=== PATIENT | female | born 1945 | race Caucasian/White ===

== ENCOUNTER → 2016-10-27 | Outpatient (CLI) | payer MEDICARE ==
--- NOTE | 2016-10-27 11:05 | BD ---
EXAMINATION TYPE: MG DEXA axial skeleton. DATE OF EXAM: 10/27/2016 COMPARISON: 03.10.2014 CLINICAL HISTORY: M[age] AGE RELATED OSTEOPOROSIS Height: 64.8 Weight: 128 FRAX RISK QUESTIONS: Alcohol (3 or more units per day): NO Family History (Parent hip fracture): YES Glucocorticoids (More than 3mos): NO (Ex: prednisone, prednisolone, methylprednisolone, dexamethasone, and hydrocortisone). History of Fracture in Adulthood: YES Secondary Osteoporosis: YES 1. Type 1 Diabetes: NO 2. Hyperthyroidism: NO 3. Menopause before 45: NO 4. Malnutrition: NO 5. Chronic liver disease: NO Rheumatoid Arthritis: NO Current Tobacco Use: YES RISK FACTORS HISTORY OF: History of Wrist Fracture: LT WRIST A CHILD Other Fractures since Age 49: RT HAND When: > 50 Family History of Osteoporosis: YES HER MOTHER AND SISTER...MOTHER WITH BROKEN HIP Smoke tobacco: YES, LESS THAN A PAC DAILY Drink Alcohol: SOCIAL Active: YES Diet low in dairy products/other sources of calcium: NO Postmenopausal woman: YES AT 54 YRS OLD Take estrogen and/or progesterone medications: AT 54 YRS OLD...AND NOT FOR VERY LONG Lost more than 2 inches in height since high school: NOT QUITE Adrenal Insufficiency: NO MEDICATIONS: Osteoporosis Medications: NONE NOW, TOOK FOSAMAX AND ACTENOL....WITH JAW SIDE EFFECTS... How Long: FOR YRS....STOPPED AT AGE 59 Additional Medications: BP MEDS, STATINS, CALCIUM WITH D3 Additional History: OSTEOARTHRITIS, HYPERTENSION EXAM MEASUREMENTS: Bone mineral densitometry was performed using the [employer] System. Bone mineral density as measured about the Lumbar spine is: ----- L1-L4(G/cm2): 1.095 T Score Values are as follows: ----- L1: -0.6 ----- L2: -0.6 ----- L3: -0.1 ----- L4: -1.4 ----- L1-L4: -0.7 Bone mineral density has: Decreased -1.1% since study of: 03.10.2014 Bone mineral density about the R hip (g/cm2): 0.706 Bone mineral density about the L hip (g/cm2): 0.720 T Score values are as follows: -----R Neck: -2.7 -----L Neck: -2.7 -----R Total: -2.4 -----L Total: -2.3 Bone mineral density has: Decreased -4.2% since study of: 03.10.2014 FRAX %'S: A 26.9% CHANCE OF A MAJOR OSTEOPOROTIC FX AND A 12.7% CHANCE OF A HIP FX.....PROBABILIT Y OF FX IN 10 YRS TIME IMPRESSION: Osteoporosis (T Score less than -2.5) as noted by T Score values at the femoral neck level in the ester ateral hips. There is increased fracture risk and therapy is usually indicated based on age.Re-Screen 1-2 years NOTE: T-SCORE=SD OF THE YOUNG ADULT MEAN.
--- NOTE | 2016-10-28 07:50 | MM ---
Reason for exam: screening (asymptomatic). Last mammogram was performed 1 year ago. History: Patient is postmenopausal, has history of bilateral breast cancer, and is nulliparous. Benign stereotactic core biopsy of the right breast, December 31, 2000. Benign core biopsy of the right breast. Physical Findings: A clinical breast exam by your physician is recommended on an annual basis and results should be correlated with mammographic findings. MG 3D Screening Mammo W/Cad Bilateral CC and MLO view(s) were taken. Prior study comparison: October 23, 2015, bilateral MG 3d screening mammo w/cad. March 10, 2014, bilateral MG screening mammo w CAD. The breast tissue is extremely dense which could obscure a lesion on mammography. Previous mammotome biopsy in the right breast. No significant changes when compared with prior studies. ASSESSMENT: Benign, BI-RAD 2 RECOMMENDATION: Routine screening mammogram of both breasts in 1 year.
== END | disposition home or self-care (01) ==
LOC: RADMAMWWP 09:25
PROVIDERS: ATTEND Obstetrics & Gynecology
DX: Z12.31 Encounter for screening mammogram for malignant neoplasm of breast (principal); M81.0 Age-related osteoporosis without current pathological fracture
CPT/HCPCS: 77080; 77063; G0202

== ENCOUNTER 2017-09-09 07:34 | Day surgery (SDC) | payer MEDICARE ==
[2017-09-07 10:33] VITALS: BMI 20.1
[~2017-09-09 07:34] MED LIST: LACTATED RINGERS 1,000 ML IV SCH; LIDOCAINE 1% 20 ML VIAL (10MG/ML) FOR IV START INTRADERMA PRN
[2017-09-09] MEDS ORDERED: LACTATED RINGERS 1,000 ML IV ONE (08:07)
[2017-09-09 08:16] VITALS: RESP 16; TEMP 97.8
[2017-09-09] MEDS ORDERED: PROPOFOL 10 MG/ML 20 ML VIAL IV ONE (08:22)
--- NOTE | 2017-09-09 08:28 | P.GSHP ---
History of Present Illness H&P Date: 09/09/17 Chief Complaint: Colon polyp Patient here today for short-term follow-up colonoscopy. Colonoscopy done in the fall showed a polyp that was removed in a piecemeal manner. Here today for the possible use of argon beam coagulation. Patient otherwise doing well. No bowel related complaints. Denies rectal bleeding. Past Medical History Past Medical History: Hyperlipidemia, Hypertension History of Any Multi-Drug Resistant Organisms: None Reported Past Surgical History: Tonsillectomy, Tubal Ligation Additional Past Surgical History / Comment(s): COLONOSCOPY. D & C Past Anesthesia/Blood Transfusion Reactions: No Reported Reaction Smoking Status: Current every day smoker - Past Family History Father Family Medical History: Cancer Medications and Allergies Home Medications Medication Instructions Recorded Confirmed Type Aspirin [Adult Low Dose Aspirin EC] 81 mg PO DAILY 09/07/17 09/07/17 History Calcium Citrate/Vitamin D3 1 each PO DAILY 09/07/17 09/09/17 History [Calcitrate + Vit D Caplet] Lisinopril-Hctz 10-12.5 mg 1 each PO DAILY 09/07/17 09/09/17 History [Zestoretic 10-12.5] Raloxifene HCl [Raloxifene HCl] 60 mg PO DAILY 09/07/17 09/09/17 History Simvastatin [Simvastatin] 40 mg PO DAILY 09/07/17 09/09/17 History Allergies Allergy/AdvReac Type Severity Reaction Status Date / Time bee venom protein (honey bee) Allergy Anaphylaxis Verified 09/07/17 10:27 amoxicillin [From Augmentin] AdvReac Abdominal Verified 09/07/17 10:27 Pain clavulanic acid AdvReac Abdominal Verified 09/07/17 10:27 [From Augmentin] Pain Surgical - Exam Vital Signs Temp Pulse Resp BP Pulse Ox 97.8 F 69 16 162/71 92 L 09/09/17 08:15 09/09/17 08:15 09/09/17 08:15 09/09/17 08:15 09/09/17 08:15 Physical exam: General: Well-developed, well-nourished HEENT: Normocephalic, sclerae nonicteric Abdomen: Nontender, nondistended Extremities: No edema Neuro: Alert and oriented Assessment and Plan (1) Colon polyp Narrative/Plan: Will proceed with colonoscopy at this time. Current Visit: Yes Status: Acute Code(s): K63.5 - POLYP OF COLON SNOMED Code(s): 77736123
--- NOTE | 2017-09-09 08:43 | P.PCN ---
Date of Procedure: 09/09/17 Procedure(s) Performed: PREOPERATIVE DIAGNOSIS: Colon polyp POSTOPERATIVE DIAGNOSIS: Normal exam PROCEDURE: Colonoscopy ANESTHESIA: MAC SURGEON: Benjamin Schrader M.D. SPECIMENS: None ENDOSCOPIC PROCEDURE: The patient was placed on the endoscopy table in the left decubitus position. The Olympus colonoscope was inserted into the anus and passed under direct visualization to the base of the cecum. The appendiceal orifice was visualized. From that point the scope was slowly withdrawn inspecting all surfaces carefully. There were no neoplastic inflammatory or polypoid lesions throughout the cecum, ascending, transverse, descending, sigmoid and rectum. There was no diverticulosis noted. Digital rectal examination was normal. The patient was taken to the recovery room in stable condition per anesthesia guidelines. RECOMMENDATIONS: Increase fiber. Follow-up colonoscopy in 3 years.
[2017-09-09 09:09] VITALS: BP 105/67; PULSE 68
== END 2017-09-09 09:30 | disposition home or self-care (01) ==
LOC: ORWHC2ENDO 07:34
PROVIDERS: ATTEND Surgery
DX: Z09 Encounter for follow-up examination after completed treatment for conditions other than malignant neoplasm (principal); K57.30 Diverticulosis of large intestine without perforation or abscess without bleeding; Z87.19 Personal history of other diseases of the digestive system; E78.5 Hyperlipidemia, unspecified; I10 Essential (primary) hypertension; F17.210 Nicotine dependence, cigarettes, uncomplicated; Z79.82 Long term (current) use of aspirin; Z79.899 Other long term (current) drug therapy; Z88.0 Allergy status to penicillin; Z91.030 Bee allergy status
CPT/HCPCS: 45378; J2704

== ENCOUNTER → 2017-11-18 | Outpatient (CLI) | payer MEDICARE ==
--- NOTE | 2017-11-19 15:43 | MM ---
Reason for exam: screening (asymptomatic). Last mammogram was performed 1 year and 1 month ago. History: Patient is postmenopausal and is nulliparous. Benign stereotactic core biopsy of the right breast, December 31, 2000. Benign core biopsy of the right breast. Physical Findings: A clinical breast exam by your physician is recommended on an annual basis and results should be correlated with mammographic findings. MG 3D Screening Mammo W/Cad Bilateral CC and MLO view(s) were taken. Prior study comparison: October 27, 2016, bilateral MG 3d screening mammo w/cad. October 23, 2015, bilateral MG 3d screening mammo w/cad. The breast tissue is extremely dense which could obscure a lesion on mammography. Finding: There are typically benign dystrophic, round calcifications in both breasts. Previous mammotome biopsy in the right breast. There is no discrete abnormality. ASSESSMENT: Benign, BI-RAD 2 RECOMMENDATION: Routine screening mammogram of both breasts in 1 year.
== END | disposition home or self-care (01) ==
LOC: RADMAMWWP 10:52
PROVIDERS: ATTEND Obstetrics & Gynecology
DX: Z12.31 Encounter for screening mammogram for malignant neoplasm of breast (principal)
CPT/HCPCS: 77063; 77067

== ENCOUNTER → 2018-01-20 | Outpatient (CLI) | payer MEDICARE ==
--- NOTE | 2018-01-20 08:25 | CT ---
EXAMINATION TYPE: CT sinus wo con DATE OF EXAM: 01/20/2018 COMPARISON: None HISTORY: Chronic sinusitis CT DLP: 570.[address] of the paranasal sinuses was performed in the axial and coronal planes. Bone and soft tissue settings are submitted. The paranasal sinuses demonstrate normal aeration and development. Moderate mucosal thickening right maxillary sinus with mild mucosal thickening at the base of the lef t maxillary sinus. Bilateral ostiomeatal units are patent. There is mild ethmoidal sinus opacificatio n. Sphenoid sinus and frontal sinuses are well-aerated. Mild nasal septal deviation from left to right. No bony destructive changes are seen within the field of view. IMPRESSION: Chronic sinusitis as noted.
== END | disposition home or self-care (01) ==
LOC: RADCTMAIN 07:59
PROVIDERS: ATTEND Otolaryngology
DX: J32.0 Chronic maxillary sinusitis (principal)
CPT/HCPCS: 70486

== ENCOUNTER → 2018-10-06 | Outpatient (CLI) | payer MEDICARE ==
--- NOTE | 2018-10-06 10:40 | CT ---
EXAMINATION TYPE: CT abdomen pelvis w con DATE OF EXAM: 10/06/2018 COMPARISON: None INDICATION: Colon polyp DLP: 596 mGycm, Automated exposure control for dose reduction was used. CONTRAST: 100 ml mL of Isovue 300. Study performed with Oral Contrast TECHNIQUE: Axial images were obtained from above the diaphragm to the pubic rami in the axial plane a t 5 mm thick sections. Reconstructed images are reviewed on the computer in the coronal plane. FINDINGS: Limited CT sections are obtained the lung bases. There is a 0.4 cm nodule within the periphery of th e right lower lobe. Series 4 image 3. Some atelectasis may be within the posterior medial right lung base. Underlying thickening is considered less likely but within the differential. Follow-up is recom mended. CT ABDOMEN:Vascular calcification is within the aorta. Inferior vena cava is unremarkable. Right kid jono appears low lying in relation to the left. The kidneys appear normal without masses cysts or hydr onephrosis. Liver and spleen and normal density without discrete masses or cysts. Pancreas: Normal Adrenal glands: The adrenal glands are normal. Gallbladder: Normal Aorta: Vascular calcification is within the aorta. Inferior vena cava: Normal. CT PELVIS: Loops of bowel within the abdomen and pelvis are normal. There are loops of bowel which are incom pletely distended or lack oral contrast limiting their evaluation. Appendix: Not clearly identified. No suspicious tubular structures or inflammatory changes are eviden t. Urinary bladder: Decompressed with limited evaluation. Genitourinary structures: A 0.9 cm cyst may be on the left ovary. Right ovary appears normal. Calcifi ed fibroids are within the uterus. Osseous structures: No suspicious lytic or sclerotic lesions. Facet degenerative changes present. IMPRESSIONS: 1. Small follicle in the left ovary. 2. Thickening along the posterior medial right lung base may be related atelectasis. Other etiologies are not excluded and follow-up is recommended. 3. Calcified uterine fibroid
== END | disposition home or self-care (01) ==
LOC: RADCTMAIN 07:06
PROVIDERS: ATTEND Surgery
DX: N85.8 Other specified noninflammatory disorders of uterus (principal)
CPT/HCPCS: 82565; 84520; 74177; 36415; Q9967

== ENCOUNTER → 2018-11-22 | Outpatient (CLI) | payer MEDICARE ==
[2018-11-22 10:39] LABS: HCT 45.6 % (34.0-46.0); HGB 14.4 gm/dL (11.4-16.0); MCH 27.9 pg (25.0-35.0); MCHC 31.5 g/dL (31.0-37.0); MCV 88.5 fL (80.0-100.0); Mean Platelet Volume 6.7; Platelet Count 264 k/uL (150-450); RBC 5.16 m/uL (3.80-5.40); RDW 13.8 % (11.5-15.5); WBC 6.7 k/uL (3.8-10.6)
[2018-11-22 10:56] LABS: Albumin 4.3 g/dL (3.5-5.0); Calcium 9.7 mg/dL (8.4-10.2); Potassium 4.9 mmol/L (3.5-5.1); Total Bilirubin 0.7 mg/dL (0.2-1.3)
== END | disposition home or self-care (01) ==
LOC: LABPAT 10:02
PROVIDERS: ATTEND Surgery
DX: Z01.812 Encounter for preprocedural laboratory examination (principal)
CPT/HCPCS: 36415; 80053; 85027

== ENCOUNTER 2018-11-29 07:21 | Inpatient (IN) | payer MEDICARE ==
[~2018-11-29 07:21] MED LIST changes: +ALVIMOPAN 12 MG CAPSULE PO ONE; +DEXAMETHASONE SOD PHOSPHATE 10 MG/ML 1 ML VIAL IV ONE; +HEPARIN SODIUM,PORCINE 5,000 UNIT/ML 1 ML VIAL SQ ONE; +HYDROmorphone 0.5 MG/0.5 ML SYRINGE IVP PRN; -LACTATED RINGERS 1,000 ML IV SCH; +ONDANSETRON 4 MG/2 ML VIAL IVP ONE; +ONDANSETRON 4 MG/2 ML VIAL IVP PRN; +metroNIDAZOLE-NS PMX 500 MG in SALINE 1 100ML.BAG IVPB ONE
[2018-11-29] MEDS: LACTATED RINGERS 1,000 ML IV SCH (08:02)
--- NOTE | 2018-11-29 08:31 | P.GSHP ---
History of Present Illness H&P Date: 11/29/18 Chief Complaint: Colon polyp 73-year-old female well-known to our service. 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 This was approximately 2.5-3 cm behind the ileocecal valve. This was not amenable to endoscopic retrieval. This had previously been identified. During her last scope one year ago with the forward viewing scope was unable to visualize this. With the side-viewing scope at [place] this polyp was well seen. Patient otherwise asymptomatic. Past Medical History Past Medical History: Asthma, Hyperlipidemia, Hypertension, Osteoarthritis (OA) Additional Past Medical History / Comment(s): CURRENT: COLON POLYP. SEVERAL BREAKS, NO SURGERIES NEEDED. History of Any Multi-Drug Resistant Organisms: None Reported Past Surgical History: Tonsillectomy, Tubal Ligation Additional Past Surgical History / Comment(s): COLONOSCOPY. SINUS SURGERY. TEETH REMOVAL. D & C Past Anesthesia/Blood Transfusion Reactions: No Reported Reaction Past Psychological History: No Psychological Hx Reported Smoking Status: Former smoker Past Alcohol Use History: Occasional Additional Past Alcohol Use History / Comment(s): QUIT SMOKING, NOVEMBER 08. 1 PPD OFF AND ON FOR PAST 40 YRS Past Drug Use History: None Reported - Past Family History Father Family Medical History: Cancer Medications and Allergies Home Medications Medication Instructions Recorded Confirmed Type Aspirin [Adult Low Dose Aspirin EC] 81 mg PO DAILY 09/07/17 11/22/18 History Calcium Citrate/Vitamin D3 1 each PO DAILY 09/07/17 11/22/18 History [Calcitrate + Vit D Caplet] Lisinopril-Hctz 10-12.5 mg 1 each PO QAM 09/07/17 11/22/18 History [Zestoretic 10-12.5] Raloxifene HCl 60 mg PO QAM 09/07/17 11/22/18 History Simvastatin 40 mg PO HS 09/07/17 11/22/18 History Fexofenadine HCl [Rosemary Allergy] 180 mg PO DAILY 11/22/18 11/22/18 History Montelukast [Singulair] 10 mg PO DAILY 11/22/18 11/22/18 History Nicotine 14Mg/24Hr Patch [Habitrol] 1 patch TOPICAL DAILY 11/22/18 11/22/18 History Allergies Allergy/AdvReac Type Severity Reaction Status Date / Time bee venom protein (honey bee) Allergy Anaphylaxis Verified 11/29/18 07:40 Surgical - Exam Vital Signs Temp Pulse Resp BP Pulse Ox 97.3 F L 63 16 157/66 98 11/29/18 07:49 11/29/18 07:49 11/29/18 07:49 11/29/18 07:49 11/29/18 07:49 Physical exam: General: Well-developed, well-nourished HEENT: Normocephalic, sclerae nonicteric Abdomen: Nontender, nondistended Extremities: No edema Neuro: Alert and oriented Assessment and Plan (1) Colon polyp Narrative/Plan: Options reviewed with the patient in detail. Options of tertiary care evaluation for possible advanced endoscopic techniques versus surgical resection reviewed. She would like to proceed with surgical resection at this time. We'll proceed with laparoscopic da Davis assisted resection cecum or right colon. Risks of bleeding, infection, leak, abscess, duodenal and ureteral injury, recurrent polyp reviewed. She understands and wishes to proceed. Current Visit: No Status: Acute Code(s): K63.5 - POLYP OF COLON SNOMED Code(s): 18945767
[2018-11-29] MEDS ORDERED: ePHEDrine SULFATE/0.9% NACL/PF 50 MG/5 ML SYRINGE IV ONE (10:03)
[2018-11-29] MEDS ORDERED: ROCURONIUM BROMIDE 10 MG/ML 10 ML VIAL IV ONE (10:03)
[2018-11-29] MEDS ORDERED: LIDOCAINE 1% INJ 10MG/ML (20 ML MDV) ONE (10:03)
[2018-11-29] MEDS ORDERED: INDOCYANINE GREEN 25 MG VIAL IV ONE (10:03)
[2018-11-29] MEDS ORDERED: PROPOFOL 10 MG/ML 20 ML VIAL IV ONE (10:03)
[2018-11-29] MEDS ORDERED: NEOSTIGMINE 1 MG/ML 10 ML VIAL ONE (10:03)
[2018-11-29] MEDS ORDERED: fentaNYL (PF) 50 MCG/ML 2 ML AMP ONE (10:03)
[2018-11-29] MEDS ORDERED: GLYCOPYRROLATE 0.2 MG/ML 2 ML VIAL ONE (10:03)
[2018-11-29] MEDS ORDERED: MIDAZOLAM 2 MG/2 ML VIAL ONE (10:03)
[2018-11-29] MEDS ORDERED: SUCCINYLCHOLINE CHLORIDE 100 MG/5 ML SYR IV ONE (10:03)
[2018-11-29] MEDS ORDERED: KETOROLAC 30 MG/ML 1 ML VIAL ONE (10:03)
[2018-11-29] MEDS ORDERED: BUPIVACAINE (PF) 0.5% 30 ML VIAL SQ ONE (10:39)
[2018-11-29] MEDS ORDERED: LACTATED RINGERS 1,000 ML IV ONE (12:17)
[2018-11-29] MEDS ORDERED: ONDANSETRON 4 MG/2 ML VIAL IVP PRN (13:23)
[2018-11-29] MEDS ORDERED: HYDROmorphone 0.5 MG/0.5 ML SYRINGE IVP PRN (13:23)
--- NOTE | 2018-11-29 13:30 | P.OP ---
Date of Procedure: 11/29/18 Procedure(s) Performed: PREOPERATIVE DIAGNOSIS: Right-sided colon polyp POSTOPERATIVE DIAGNOSIS: Same PROCEDURE: Laparoscopic da Davis assisted limited right colectomy with intracorporeal anastomosis SURGEON: Raciel EBL: Minimal see anesthesia records ANESTHESIA: General COMPLICATIONS: None OPERATIVE PROCEDURE: Patient was placed on the operating table in the supine position. The patient was placed under general anesthesia. A Kim catheter was placed. The patient's arms were tucked. The abdomen was prepped and draped in usual sterile fashion. A small Pfannenstiel incision was created in the midline. The subcutaneous fat and fascia were divided horizontally using electrocautery. The rectus muscle was divided vertically using blunt dissection and entrance into the peritoneal cavity occurred. The Matthew lap cap was placed. Through the GelPort adapter of the Matthew a 12 mm robotic port and a 12 mm assist port were placed. Full insufflation took place to 15 mmHg. 3 additional trochars were placed for the robot a 12 mm in the left subcostal a 8 mm in the left lateral infraumbilical and a 8 mm trocar in the left lower quadrant location. The patient was placed in Trendelenburg right side up. The liver was free of any evidence of distant metastasis. The polyp was not palpable laparoscopically. The terminal ileum and cecum/ascending colon were mobilized laterally by incising the white line of Toldt. Blunt dissection brought the cecum medially. The terminal ileum was divided using a laparoscopic 45 mm stapler 2 blue load. The mesentery of the ileum and cecum were divided using the vessel sealer. We stayed very close to the bowel wall as we were not clinically suspicious of malignancy. The mid ascending colon was then divided in a similar fashion and 3 separate firings of the blue load 45 mm stapler. The specimen was placed in an Endo Catch bag and brought out through the gel Port site. The specimen was opened by myself on the back table. The polypoid lesion was noted adjacent to the appendiceal orifice. The margins were clear. This did not appear clinically suspicious for malignancy. The terminal ileum was brought in an isoperistaltic manner adjacent to the hepatic flexure. 2 separate 3-0 GI silk stay sutures were placed proximally and distally. Small enterotomy and colotomy took place. At that time stapler was fired along the antimesenteric border of both the small bowel and the colon. 2 separate firings of the 45 blue load stapler were utilized. We had an adequate opening between the small bowel and colon at that point. The defect was closed transversely using a running full-thickness 20V lock suture. Once the defect was closed I used a running horizontal mattress Lambert suture along the length of the staple line in order to imbricate that area. The previously placed 3-0 GI silk sutures acted as stay sutures proximally and distally. The abdomen was irrigated. No bleeding was seen. The pneumoperitoneum was evacuated. The fascia was closed using a running 0 Vicryl suture. The 12 mm trocar site fascia was closed using a [id number] 0 Vicryl suture. The subcutaneous tissues were irrigated with saline. The subcutaneous tissues were closed using 3-0 Vicryl sutures. The skin at all locations were closed using 4-0 Monocryl sutures. Dermabond was then utilized. Sterile dressings were applied. DISPOSITION: Stable to recovery room
[2018-11-29] MEDS: Acetaminophen-Codeine 300-30mg TAB PO PRN ×2 (15:55→20:53)
[2018-11-29 16:04] VITALS: BMI 18.8
[2018-11-29] MEDS: NICOTINE 14MG/24HR PATCH TRANSDERM SCH (16:05)
[2018-11-29] MEDS: HEPARIN SODIUM,PORCINE 5,000 UNIT/ML 1 ML VIAL SQ SCH (16:07)
[2018-11-29] MEDS ORDERED: INSULIN ASPART (NovoLOG) 100 UNIT/ML VIAL SQ SCH (17:30)
[2018-11-29 17:55] LABS: Calcium 8.8 mg/dL (8.4-10.2); Potassium 3.6 mmol/L (3.5-5.1)
[2018-11-29 18:14] LABS: Basophils % (A) 0 %; Eosinophils % (A) 0 %; HCT 41.7 % (34.0-46.0); HGB 12.9 gm/dL (11.4-16.0); Lymphocytes # (A) 0.5 k/uL (1.0-4.8); Lymphocytes % (A) 3 %; MCH 27.2 pg (25.0-35.0); MCV 87.9 fL (80.0-100.0); Mean Platelet Volume 6.9; Monocytes # (A) 0.6 k/uL (0-1.0); Monocytes % (A) 4 %; Neutrophils # (A) 12.7 k/uL (1.3-7.7); Neutrophils % (A) 92 %; Platelet Count 242 k/uL (150-450); RBC 4.74 m/uL (3.80-5.40); WBC 13.9 k/uL (3.8-10.6)
[2018-11-29] MEDS ORDERED: FAMOTIDINE 20 MG/2 ML VIAL IV SCH (21:00)
[2018-11-30] MEDS: HEPARIN SODIUM,PORCINE 5,000 UNIT/ML 1 ML VIAL SQ SCH ×4 (00:12→23:26)
[2018-11-30] MEDS: Acetaminophen-Codeine 300-30mg TAB PO PRN ×6 (01:13→21:59)
[2018-11-30] MEDS: LACTATED RINGERS 1,000 ML IV SCH ×2 (05:41→20:27)
[2018-11-30] MEDS: ALVIMOPAN 12 MG CAPSULE PO SCH ×2 (07:00→20:27)
[2018-11-30] MEDS: FAMOTIDINE 20 MG TAB PO SCH (07:00)
[2018-11-30] MEDS: NICOTINE 14MG/24HR PATCH TRANSDERM SCH (07:01)
[2018-11-30] MEDS: MONTELUKAST 10 MG TAB PO SCH ×2 (07:01→07:14)
--- NOTE | 2018-11-30 12:46 | P.PN ---
<Jess Lott A - Last Filed: 11/30/18 12:38> Subjective Progress Note Date: 11/30/18 CHIEF COMPLAINT: right-sided colon polyp HISTORY OF PRESENT ILLNESS: patient is status post laparoscopic da Davis assisted limited right colectomy with intracorporeal anastomosis. Postop day 1. Patient seen and examined at the bedside. Patient's family present. Patient is tolerating full liquid diet. She denies nausea or vomiting. Kim catheter discontinued this morning. Patient voiding without difficulty. Patient reports small bowel movement this morning. Continues to pass flatus. Pain is tolerable on Tylenol #3. vital signs stable. She is afebrile. PHYSICAL EXAM: VITAL SIGNS: Reviewed. GENERAL: Well-developed in no acute distress. HEENT: No sclera icterus. Extraocular movements grossly intact. Moist buccal mucosa. Head is atraumatic, normocephalic. ABDOMEN: Soft. Nondistended. Nontender. Surgical sites clean dry intact without drainage or signs of infection. NEUROLOGIC: Alert and oriented. Cranial nerves II through XII grossly intact. ASSESSMENT: 1. Right-sided colon polyp, s/p status post laparoscopic da Davis assisted limited right colectomy with intracorporeal anastomosis PLAN: 1. Continue full liquid diet. Possible advancement once evaluated by Dr. Schrader today. 2. Pain control. Continue Tylenol 3 3. Incentive spirometry 4. Activity as tolerated 5. Await pathology 6. Possible discharge home tomorrow Nurse practitioner note has been reviewed by physician. Signing provider agrees with the documented findings, assessment, and plan of care. Objective - Vital Signs Vital signs: Vital Signs Temp 97.7 F 11/30/18 07:00 Pulse 71 11/30/18 07:00 Resp 17 11/30/18 07:00 BP 117/65 11/30/18 07:00 Pulse Ox 94 L 11/30/18 07:00 Intake & Output 11/29/18 11/30/18 11/30/18 18:59 06:59 18:59 Intake Total 1999 200 440 Output Total 510 1050 Balance 1490 -850 440 Intake: IV 2000 Oral 200 440 Output: Urine 500 1050 Estimated Blood Loss 10 Other: Voiding Method Indwelling Catheter - Labs CBC & Chem 7: 11/29/18 17:23 11/29/18 17:23 Labs: Abnormal Lab Results - Last 24 Hours (Table) 11/29/18 11/29/18 Range/Units 17:23 17:23 WBC 13.9 H (3.8-10.6) k/uL Neutrophils # 12.7 H (1.3-7.7) k/uL Lymphocytes # 0.5 L (1.0-4.8) k/uL Sodium 135 L (137-145) mmol/L BUN 24 H (7-17) mg/dL Creatinine 1.09 H (0.52-1.04) mg/dL Glucose 177 H (74-99) mg/dL <Benjamin Schrader - Last Filed: 11/30/18 14:40> Subjective As above. Patient had some bloody stools today. Otherwise doing well. Minimal pain. We'll recheck CBC as the labs that I ordered yesterday were obtained in the afternoon. Increase diet. Possible discharge tomorrow. Objective - Vital Signs Vital signs: Vital Signs Temp 98.6 F 11/30/18 14:16 Pulse 66 11/30/18 14:16 Resp 17 11/30/18 14:16 BP 147/72 11/30/18 14:16 Pulse Ox 98 11/30/18 14:16 Intake & Output 11/29/18 11/30/18 11/30/18 18:59 06:59 18:59 Intake Total 2000 200 560 Output Total 510 1050 Balance 1490 -850 560 Intake: IV 2000 Oral 200 560 Output: Urine 500 1050 Estimated Blood Loss 10 Other: Voiding Method Indwelling Catheter # Voids 1 # Bowel Movements 1 - Labs CBC & Chem 7: 11/29/18 17:23 11/29/18 17:23 Labs: Abnormal Lab Results - Last 24 Hours (Table) 11/29/18 11/29/18 Range/Units 17:23 17:23 WBC 13.9 H (3.8-10.6) k/uL Neutrophils # 12.7 H (1.3-7.7) k/uL Lymphocytes # 0.5 L (1.0-4.8) k/uL Sodium 135 L (137-145) mmol/L BUN 24 H (7-17) mg/dL Creatinine 1.09 H (0.52-1.04) mg/dL Glucose 177 H (74-99) mg/dL Assessment and Plan (1) Colon polyp Current Visit: Yes Status: Acute Code(s): K63.5 - POLYP OF COLON SNOMED Code(s): 16289948
[2018-11-30 15:46] LABS: HCT 27.4 % (34.0-46.0); MCH 28.1 pg (25.0-35.0); MCHC 32.2 g/dL (31.0-37.0); MCV 87.4 fL (80.0-100.0); Mean Platelet Volume 6.5; Platelet Count 203 k/uL (150-450); RBC 3.13 m/uL (3.80-5.40); RDW 14.2 % (11.5-15.5); WBC 13.7 k/uL (3.8-10.6)
[2018-11-30 15:53] LABS: HGB 8.8 gm/dL (11.4-16.0)
[2018-11-30] MEDS: LISINOPRIL 10 MG TAB PO SCH (16:01)
[2018-11-30 21:57] LABS: HCT 25.5 % (34.0-46.0); HGB 8.1 gm/dL (11.4-16.0); MCH 27.9 pg (25.0-35.0); MCV 87.1 fL (80.0-100.0); Mean Platelet Volume 6.9; Platelet Count 187 k/uL (150-450); RBC 2.92 m/uL (3.80-5.40); RDW 14.2 % (11.5-15.5); WBC 11.2 k/uL (3.8-10.6)
[2018-12-01] MEDS: Acetaminophen-Codeine 300-30mg TAB PO PRN ×2 (02:06→05:45)
[2018-12-01 06:08] LABS: Basophils % (A) 0 %; Eosinophils # (A) 0.1 k/uL (0-0.7); Eosinophils % (A) 1 %; HCT 24.6 % (34.0-46.0); HGB 7.6 gm/dL (11.4-16.0); Lymphocytes # (A) 1.9 k/uL (1.0-4.8); Lymphocytes % (A) 21 %; MCH 27.3 pg (25.0-35.0); MCHC 31.1 g/dL (31.0-37.0); MCV 87.9 fL (80.0-100.0); Monocytes # (A) 0.5 k/uL (0-1.0); Monocytes % (A) 6 %; Neutrophils # (A) 6.1 k/uL (1.3-7.7); Neutrophils % (A) 69 %; Platelet Count 197 k/uL (150-450); RDW 14.2 % (11.5-15.5); WBC 8.7 k/uL (3.8-10.6)
[2018-12-01 06:25] LABS: Calcium 8.4 mg/dL (8.4-10.2); Potassium 4.3 mmol/L (3.5-5.1)
[2018-12-01] MEDS: ALVIMOPAN 12 MG CAPSULE PO SCH (08:48)
[2018-12-01] MEDS: FAMOTIDINE 20 MG TAB PO SCH (08:48)
[2018-12-01] MEDS: LISINOPRIL 10 MG TAB PO SCH (08:48)
[2018-12-01] MEDS: MONTELUKAST 10 MG TAB PO SCH (08:48)
[2018-12-01] MEDS: HEPARIN SODIUM,PORCINE 5,000 UNIT/ML 1 ML VIAL SQ SCH (08:48)
[2018-12-01] MEDS: NICOTINE 14MG/24HR PATCH TRANSDERM SCH (08:48)
--- NOTE | 2018-12-01 10:55 | P.PN ---
Subjective Progress Note Date: 12/01/18 Principal diagnosis: Colon polyp Patient had additional bloody stools yesterday and her repeat hemoglobin was noted to drop this morning's level was 7.6. One unit of blood was ordered. The last time she use the restroom she saw no blood she states. Denies pain. No lightheadedness or syncopal episodes. Vital signs have been stable. Tolerating diet. Objective - Vital Signs Vital signs: Vital Signs Temp 98.5 F 12/01/18 10:44 Pulse 77 12/01/18 10:44 Resp 16 12/01/18 10:44 BP 127/57 12/01/18 10:44 Pulse Ox 96 12/01/18 07:00 Intake & Output 11/30/18 12/01/18 12/01/18 18:59 06:59 18:59 Intake Total 560 480 260 Output Total 400 Balance 560 80 260 Intake: Intake, IV Titration 480 Amount Lactated Ringers 1,000 ml 480 @ 20 mls/hr IV .Q24H [facility] Rx#:[id number] Oral 560 260 Blood Product 0 Rc As-1 Unit 0 [id number] Output: Stool 400 Other: Voiding Method Toilet # Voids 1 2 # Bowel Movements 1 1 - Exam Abdomen: Soft, nondistended, incisions clean and dry - Labs CBC & Chem 7: 12/01/18 05:47 12/01/18 05:47 Labs: Abnormal Lab Results - Last 24 Hours (Table) 11/30/18 11/30/18 11/30/18 Range/Units 15:36 15:36 21:34 WBC 13.7 H 11.2 H (3.8-10.6) k/uL RBC 3.13 L 2.92 L (3.80-5.40) m/uL Hgb 8.8 L D 8.1 L (11.4-16.0) gm/dL Hct 27.4 L 25.5 L (34.0-46.0) % BUN (7-17) mg/dL Creatinine (0.52-1.04) mg/dL Glucose (74-99) mg/dL Crossmatch See Detail 12/01/18 12/01/18 Range/Units 05:47 05:47 WBC (3.8-10.6) k/uL RBC 2.80 L (3.80-5.40) m/uL Hgb 7.6 L (11.4-16.0) gm/dL Hct 24.6 L (34.0-46.0) % BUN 23 H (7-17) mg/dL Creatinine 1.10 H (0.52-1.04) mg/dL Glucose 103 H (74-99) mg/dL Crossmatch Assessment and Plan (1) Colon polyp Narrative/Plan: Recheck hemoglobin posttransfusion. Heparin and Entereg placed on hold. Patient with suspected anastomotic bleeding. We'll monitor closely. No plans for re-intervention currently. Current Visit: Yes Status: Acute Code(s): K63.5 - POLYP OF COLON SNOMED Code(s): 35249649
[2018-12-01] MEDS: ACETAMINOPHEN TAB 325 MG TAB PO PRN ×2 (11:33→18:56)
[2018-12-01 14:53] LABS: HCT 29.3 % (34.0-46.0); MCH 29.1 pg (25.0-35.0); MCHC 32.7 g/dL (31.0-37.0); MCV 89.1 fL (80.0-100.0); Mean Platelet Volume 6.9; Platelet Count 197 k/uL (150-450); RBC 3.29 m/uL (3.80-5.40); RDW 14.2 % (11.5-15.5); WBC 10.4 k/uL (3.8-10.6)
[2018-12-01 14:54] LABS: HGB 9.6 gm/dL (11.4-16.0)
--- NOTE | 2018-12-01 15:03 | CDI ---
Documentation Clarification Form Date: 12/01/2018 2:51:12 PM From: Haley SinghKATHERINE brown, CCDS Admit Date: 11/29/2018 7:21:00 AM Patient Name: Deepa Sampson Visit Number: [id number] Discharge Date: ATTENTION: The Clinical Documentation Specialists (CDI) and [facility] Coding Staff appreciate your assistance in clarifying documentation. Please respond to the clarification below the line at the bottom and electronically sign. The CDI & [facility] Coding staff will review the response and follow-up if needed. Please note: Queries are made part of the Legal Health Record. If you have any questions, please contact the author of this message via ITS. Dr. Benjamin Schrader: Per the 11/30 progress note: patient had bloody stools. Per the 12/01 progress note: patient had bloody stools yesterday & her repeat hemoglobin was noted to drop this morning's level was 7.6*. One unit of blood ordered. 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 Also history of Asthma, Hyperlipidemia, Hypertension & OA. Clinical indicators: Presented with right side colon polyp for laparoscopic da Davis assisted limited right colectomy with intracorporeal anastomosis. Hemoglobin: (12.0), 8.8*, 8.1*, 7.6*, 9.6* Hematocrit: (41.7), 27.4*, 25.5*, 24.6*, 29.3* Treatment: 1 unit of PRBCs transfused, H/H, IV Zofran, IV Dilaudid, IV Decadron, IV Flagyl In order to capture the severity of condition, please clarify the associated diagnosis & significance of the patient's drop in hemoglobin: Diagnosis related to patient's drop in hemoglobin specified as: AND Please clarify if the patient's drop in hemoglobin is related to the surgery: Drop in hemoglobin is related to the patient's surgery o An expected postoperative condition o An unexpected postoperative condition Drop in hemoglobin is unrelated to the patient's surgery Unable to determine Other, please specify (Last Revision: February 2017) __Unexpected postoperative condition MTDD
[2018-12-01] MEDS: LACTATED RINGERS 1,000 ML IV SCH (23:04)
--- NOTE | 2018-12-01 23:39 | P.CONS ---
History of Present Illness - Reason for Consult Consult date: 11/30/18 Requesting physician: Benjamin Schrader - History of Present Illness This is a 73-year-old white female who was admitted to the hospital for resection of a large colonic polyp. She is found to have a large sessile polypoid lesion in her colon on routine colonoscopy and this cannot be removed by endoscopy so she was elected to come back to hospital for surgery. I seen her postop and she is recovering well she's currently on the soft diet. She has slight sore throat but denies any shortness of breath or chest pain or abdominal pain is very minimum. Review of Systems GENERAL: Patient denies fever. Denies chills. EYES: Denies blurred vision. Denies vision changes. Denies eye pain. EARS, NOSE, MOUTH, & THROAT: Denies headache. Denies sore throat. Denies ear pain. RESPIRATORY: Denies cough. Denies shortness of breath. Denies sputum production. Denies hemoptysis. CARDIOVASCULAR: Denies chest pain or pressure. Denies palpitations. Denies arrhythmias. GASTROINTESTINAL: Denies abdominal pain. Denies diarrhea. Denies constipation. Denies nausea. Denies vomiting. Denies heartburn. Denies blood in the stool. GENITOURINARY: Denies urinary frequency. Denies burning. Denies dysuria. Denies cloudy urine. Denies blood in the urine. MUSCULOSKELETAL: Denies myalgias. Denies joint swelling. Denies decreased range of motion beyond patients baseline. INTEGUMENTARY: Denies pruitis. Denies rash. PSYCHIATRIC: Denies suicidal or homicial ideations. ENDOCRINE: Denies weight change. Denies polydipsia. Denies polyuria. HEMATOLOGIC: Denies bleeding disorders. Past Medical History Past Medical History: Asthma, Hyperlipidemia, Hypertension, Osteoarthritis (OA) Additional Past Medical History / Comment(s): CURRENT: COLON POLYP. SEVERAL BREAKS, NO SURGERIES NEEDED. History of Any Multi-Drug Resistant Organisms: None Reported Past Surgical History: Tonsillectomy, Tubal Ligation Additional Past Surgical History / Comment(s): COLONOSCOPY. SINUS SURGERY. TEETH REMOVAL. D & C, trigger thumb surgery Past Anesthesia/Blood Transfusion Reactions: No Reported Reaction Past Psychological History: No Psychological Hx Reported Smoking Status: Former smoker Past Alcohol Use History: Occasional Additional Past Alcohol Use History / Comment(s): QUIT SMOKING, NOVEMBER 08. 1 PPD OFF AND ON FOR PAST 40 YRS Past Drug Use History: None Reported - Past Family History Father Family Medical History: Cancer Medications and Allergies Home Medications Medication Instructions Recorded Confirmed Type Aspirin [Adult Low Dose Aspirin EC] 81 mg PO DAILY 09/07/17 11/29/18 History Calcium Citrate/Vitamin D3 1 tab PO DAILY 09/07/17 11/29/18 History [Calcitrate + Vit D Caplet] Lisinopril-Hctz 10-12.5 mg 1 tab PO QAM 09/07/17 11/29/18 History [Zestoretic 10-12.5] Raloxifene HCl 60 mg PO QAM 09/07/17 11/29/18 History Simvastatin 40 mg PO HS 09/07/17 11/29/18 History Fexofenadine HCl [Rosemary Allergy] 180 mg PO DAILY 11/22/18 11/29/18 History Montelukast [Singulair] 10 mg PO DAILY 11/22/18 11/29/18 History Nicotine 14Mg/24Hr Patch [Habitrol] 1 patch TOPICAL DAILY 11/22/18 11/29/18 History Acetaminophen-Codeine 300-30mg 1 tab PO Q4H PRN 3 Days #18 tablet 11/30/18 Rx [Tylenol w/codeine #3] Allergies Allergy/AdvReac Type Severity Reaction Status Date / Time bee venom protein (honey bee) Allergy Anaphylaxis Verified 11/29/18 14:02 Physical Exam Osteopathic Statement: *. No significant issues noted on an osteopathic structural exam other than those noted in the History and Physical/Consult. Vitals: Vital Signs Temp Pulse Pulse Resp BP BP Pulse Ox 12/01/18 19:08 98.6 F 80 18 145/70 96 12/01/18 15:00 98.4 F 75 16 130/72 94 L 12/01/18 13:38 98.5 F 85 16 170/70 100 12/01/18 11:24 98.3 F 76 16 163/71 98 12/01/18 10:54 98.2 F 75 16 143/71 95 12/01/18 10:44 98.5 F 77 16 127/57 12/01/18 07:00 98.0 F 72 16 124/72 96 12/01/18 03:39 15 12/01/18 01:45 98.9 F 81 17 95/49 93 L 11/30/18 23:25 18 Intake and Output 12/01/18 12/01/18 12/01/18 06:59 14:59 22:59 Intake Total 180 890 60 Output Total 400 Balance -220 890 60 Intake: Intake, IV Titration 180 Amount Lactated Ringers 1,000 ml 180 @ 20 mls/hr IV .Q24H [facility] Rx#:[id number] Oral 580 60 Blood Product 310 Rc As-1 Unit 310 [id number] Output: Stool 400 Other: Voiding Method Toilet # Voids 2 2 1 # Bowel Movements 1 Results CBC & Chem 7: 12/01/18 14:24 12/01/18 05:47 Labs: Abnormal Lab Results - Last 24 Hours (Table) 11/30/18 12/01/18 12/01/18 Range/Units 15:36 05:47 05:47 RBC 2.80 L (3.80-5.40) m/uL Hgb 7.6 L (11.4-16.0) gm/dL Hct 24.6 L (34.0-46.0) % BUN 23 H (7-17) mg/dL Creatinine 1.10 H (0.52-1.04) mg/dL Glucose 103 H (74-99) mg/dL Crossmatch See Detail 12/01/18 Range/Units 14:24 RBC 3.29 L (3.80-5.40) m/uL Hgb 9.6 L D (11.4-16.0) gm/dL Hct 29.3 L (34.0-46.0) % BUN (7-17) mg/dL Creatinine (0.52-1.04) mg/dL Glucose (74-99) mg/dL Crossmatch Assessment and Plan (1) Postoperative anemia due to acute blood loss Current Visit: Yes Status: Acute Code(s): D62 - ACUTE POSTHEMORRHAGIC ANEMIA SNOMED Code(s): 01340097042482272 (2) COPD (chronic obstructive pulmonary disease) Current Visit: Yes Status: Acute Code(s): J44.9 - CHRONIC OBSTRUCTIVE PULMONARY DISEASE, UNSPECIFIED SNOMED Code(s): 45994619 (3) Colon polyp Current Visit: Yes Status: Acute Code(s): K63.5 - POLYP OF COLON SNOMED Code(s): 01745276 (4) Hypertension Current Visit: Yes Status: Acute Code(s): I10 - ESSENTIAL (PRIMARY) HYPERTENSION SNOMED Code(s): 17847753 (5) Hyperlipidemia Current Visit: Yes Status: Acute Code(s): E78.5 - HYPERLIPIDEMIA, UNSPECIFIED SNOMED Code(s): 68498442 Plan: Postsurgical care DVT prophylaxis pain control early ambulation increased diet continue follow-up patient's overall progress. Thank you
--- NOTE | 2018-12-01 23:43 | P.PN ---
Subjective Progress Note Date: 12/01/18 Supposes 33-year-old white female who was seen postop polyp resection where she had developed acute lower chest intestinal bleeding she had approximately 6 gross bloody stools. She is currently on a regular diet and tolerating okay and her energy hemoglobin remained stable her vital signs are stable she is afebrile Objective - Vital Signs Vital signs: Vital Signs Temp 98.6 F 12/01/18 19:08 Pulse 80 12/01/18 19:08 Resp 18 12/01/18 19:08 BP 145/70 12/01/18 19:08 Pulse Ox 96 12/01/18 19:08 Intake & Output 12/01/18 12/01/18 12/02/18 06:59 18:59 06:59 Intake Total 480 950 Output Total 400 Balance 80 950 Intake: Intake, IV Titration 480 Amount Lactated Ringers 1,000 ml 480 @ 20 mls/hr IV .Q24H [facility] Rx#:[id number] Oral 640 Blood Product 310 Rc As-1 Unit 310 [id number] Output: Stool 400 Other: Voiding Method Toilet Toilet # Voids 2 2 1 # Bowel Movements 1 - Labs CBC & Chem 7: 12/01/18 14:24 12/01/18 05:47 Labs: Abnormal Lab Results - Last 24 Hours (Table) 11/30/18 12/01/18 12/01/18 Range/Units 15:36 05:47 05:47 RBC 2.80 L (3.80-5.40) m/uL Hgb 7.6 L (11.4-16.0) gm/dL Hct 24.6 L (34.0-46.0) % BUN 23 H (7-17) mg/dL Creatinine 1.10 H (0.52-1.04) mg/dL Glucose 103 H (74-99) mg/dL Crossmatch See Detail 12/01/18 Range/Units 14:24 RBC 3.29 L (3.80-5.40) m/uL Hgb 9.6 L D (11.4-16.0) gm/dL Hct 29.3 L (34.0-46.0) % BUN (7-17) mg/dL Creatinine (0.52-1.04) mg/dL Glucose (74-99) mg/dL Crossmatch Assessment and Plan (1) COPD (chronic obstructive pulmonary disease) Current Visit: Yes Status: Acute Code(s): J44.9 - CHRONIC OBSTRUCTIVE PULMONARY DISEASE, UNSPECIFIED SNOMED Code(s): 73558915 (2) Colon polyp Current Visit: Yes Status: Acute Code(s): K63.5 - POLYP OF COLON SNOMED Code(s): 21294606 (3) Hyperlipidemia Current Visit: Yes Status: Acute Code(s): E78.5 - HYPERLIPIDEMIA, UNSPECIFIED SNOMED Code(s): 58835832 (4) Hypertension Current Visit: Yes Status: Acute Code(s): I10 - ESSENTIAL (PRIMARY) HYPERTENSION SNOMED Code(s): 46351404 (5) Postoperative anemia due to acute blood loss Current Visit: Yes Status: Acute Code(s): D62 - ACUTE POSTHEMORRHAGIC ANEMIA SNOMED Code(s): 16936653683524582 Plan: Postsurgical care DVT prophylaxis pain control early ambulation increased diet continue follow-up patient's overall progress. Thank you
[2018-12-02] MEDS: Acetaminophen-Codeine 300-30mg TAB PO PRN ×5 (01:03→23:52)
[2018-12-02] MEDS: LACTATED RINGERS 1,000 ML IV SCH (05:29)
[2018-12-02 09:00] LABS: Basophils % (A) 0 %; Eosinophils # (A) 0.2 k/uL (0-0.7); Eosinophils % (A) 2 %; HGB 9.9 gm/dL (11.4-16.0); Lymphocytes # (A) 1.6 k/uL (1.0-4.8); Lymphocytes % (A) 16 %; MCH 28.3 pg (25.0-35.0); MCHC 31.9 g/dL (31.0-37.0); MCV 88.8 fL (80.0-100.0); Mean Platelet Volume 6.5; Monocytes # (A) 0.6 k/uL (0-1.0); Monocytes % (A) 6 %; Neutrophils # (A) 7.8 k/uL (1.3-7.7); Neutrophils % (A) 76 %; Platelet Count 204 k/uL (150-450); RBC 3.49 m/uL (3.80-5.40); RDW 14.1 % (11.5-15.5); WBC 10.3 k/uL (3.8-10.6)
[2018-12-02] MEDS: NICOTINE 14MG/24HR PATCH TRANSDERM SCH (09:14)
[2018-12-02] MEDS: FAMOTIDINE 20 MG TAB PO SCH (09:14)
[2018-12-02] MEDS: MONTELUKAST 10 MG TAB PO SCH (09:14)
[2018-12-02] MEDS: LISINOPRIL 10 MG TAB PO SCH (09:14)
--- NOTE | 2018-12-02 12:19 | P.PN ---
<Jess Lott Ilene - Last Filed: 12/02/18 12:16> Subjective Progress Note Date: 12/02/18 CHIEF COMPLAINT: right-sided colon polyp HISTORY OF PRESENT ILLNESS: patient is status post laparoscopic da Davis assisted limited right colectomy with intracorporeal anastomosis performed on 11/29/2018. Patient denies bowel movements overnight. She reports a brown bowel movement this morning with some bright red blood upon wiping. Tolerating diet. Denies nausea or vomiting. Hemoglobin this morning 9.9. PHYSICAL EXAM: VITAL SIGNS: Reviewed. GENERAL: Well-developed in no acute distress. HEENT: No sclera icterus. Extraocular movements grossly intact. Moist buccal mucosa. Head is atraumatic, normocephalic. ABDOMEN: Soft. Nondistended. Nontender. Surgical sites clean dry intact without drainage or signs of infection. NEUROLOGIC: Alert and oriented. Cranial nerves II through XII grossly intact. ASSESSMENT: 1. Right-sided colon polyp, s/p status post laparoscopic da Davis assisted limited right colectomy with intracorporeal anastomosis PLAN: 1. Continue current diet 2. Pain control. Continue Tylenol 3 3. Incentive spirometry 4. Activity as tolerated 5. Possible discharge home within 24-48 hours Nurse practitioner note has been reviewed by physician. Signing provider agrees with the documented findings, assessment, and plan of care. Objective - Vital Signs Vital signs: Vital Signs Temp 98.6 F 12/02/18 07:20 Pulse 79 12/02/18 07:20 Resp 16 12/02/18 07:20 BP 134/61 12/02/18 07:20 Pulse Ox 94 L 12/02/18 07:20 Intake & Output 12/01/18 12/02/18 12/02/18 18:59 06:59 18:59 Intake Total 950 110 180 Balance 950 110 180 Intake: Intake, IV Titration 60 Amount Lactated Ringers 1,000 ml 60 @ 20 mls/hr IV .Q24H [facility] Rx#:[id number] Oral 640 50 180 Blood Product 310 Rc As-1 Unit 310 [id number] Other: Voiding Method Toilet Toilet # Voids 2 1 - Labs CBC & Chem 7: 12/02/18 08:12 12/01/18 05:47 Labs: Abnormal Lab Results - Last 24 Hours (Table) 11/30/18 12/01/18 12/02/18 Range/Units 15:36 14:24 08:12 RBC 3.29 L 3.49 L (3.80-5.40) m/uL Hgb 9.6 L D 9.9 L (11.4-16.0) gm/dL Hct 29.3 L 31.0 L (34.0-46.0) % Neutrophils # 7.8 H (1.3-7.7) k/uL Crossmatch See Detail <Benjamin Schrader - Last Filed: 12/02/18 14:12> Subjective As above. Patient's hemoglobin has stabilized. Actually higher than expected after only one unit of blood. Patient otherwise without complaints. Would like to go home tomorrow. We'll repeat CBC tomorrow anticipate discharge at that time. Objective - Vital Signs Vital signs: Vital Signs Temp 98.6 F 12/02/18 07:20 Pulse 79 12/02/18 07:20 Resp 16 12/02/18 07:20 BP 134/61 12/02/18 07:20 Pulse Ox 94 L 12/02/18 07:20 Intake & Output 12/01/18 12/02/18 12/02/18 18:59 06:59 18:59 Intake Total 950 110 180 Balance 950 110 180 Intake: Intake, IV Titration 60 Amount Lactated Ringers 1,000 ml 60 @ 20 mls/hr IV .Q24H [facility] Rx#:[id number] Oral 640 50 180 Blood Product 310 Rc As-1 Unit 310 [id number] Other: Voiding Method Toilet Toilet # Voids 2 1 - Labs CBC & Chem 7: 12/02/18 08:12 12/01/18 05:47 Labs: Abnormal Lab Results - Last 24 Hours (Table) 12/01/18 12/02/18 Range/Units 14:24 08:12 RBC 3.29 L 3.49 L (3.80-5.40) m/uL Hgb 9.6 L D 9.9 L (11.4-16.0) gm/dL Hct 29.3 L 31.0 L (34.0-46.0) % Neutrophils # 7.8 H (1.3-7.7) k/uL Assessment and Plan (1) Colon polyp Current Visit: Yes Status: Acute Code(s): K63.5 - POLYP OF COLON SNOMED Code(s): 98545420
[2018-12-02] MEDS: ACETAMINOPHEN TAB 325 MG TAB PO PRN (13:08)
--- NOTE | 2018-12-02 18:16 | P.PN ---
Subjective Progress Note Date: 12/02/18 This is a 33-year-old female status post polyp resection, tolerating low fiber diet as per surgery. Last night had one bowel movement with specks of blood with no more bleeding reported today. Hemoglobin 9.9. Denies chest pain, palpitations or shortness of breath.VSS, maintaining O2 sats in the high 90s on room air. Objective - Vital Signs Vital signs: Vital Signs Temp 98.6 F 12/02/18 14:59 Pulse 71 12/02/18 14:59 Resp 15 12/02/18 14:59 BP 135/73 12/02/18 14:59 Pulse Ox 96 12/02/18 14:59 Intake & Output 12/01/18 12/02/18 12/02/18 18:59 06:59 18:59 Intake Total 950 110 360 Balance 950 110 360 Intake: Intake, IV Titration 60 Amount Lactated Ringers 1,000 ml 60 @ 20 mls/hr IV .Q24H [facility] Rx#:[id number] Oral 640 50 360 Blood Product 310 Rc As-1 Unit 310 [id number] Other: Voiding Method Toilet Toilet # Voids 2 1 - Exam PHYSICAL EXAM: VITAL SIGNS: As above GENERAL: Sitting up in bed, no acute distress HEENT: Conjunctivae normal. eyes normal. Oral mucosa moist NECK: No JVD. No thyroid enlargement. No LNs CARDIOVASCULAR: S1, S2 regular.. No murmur RESPIRATION: Breath sounds diminished in the bases. No rhonchi or crackles. No bronchial breathing. ABDOMEN: Soft, status post surgery. Laparoscopic surgical sites clean dry and intact, well approximated .No guarding. no masses palpable. Bowel sounds heard. LEGS: No edema. no swelling PSYCHIATRY: Alert and oriented X3, mood and affect normal. NERVOUS SYSTEM: Cranial N 2-12 grossly normal. Moves all 4 limbs. Diffuse weakness No focal deficits. Strength and sensation grossly intact.. Skin: no lesions, no rash - Labs CBC & Chem 7: 12/02/18 08:12 12/01/18 05:47 Labs: Abnormal Lab Results - Last 24 Hours (Table) 12/02/18 Range/Units 08:12 RBC 3.49 L (3.80-5.40) m/uL Hgb 9.9 L (11.4-16.0) gm/dL Hct 31.0 L (34.0-46.0) % Neutrophils # 7.8 H (1.3-7.7) k/uL Assessment and Plan Assessment: ( -Right-sided colon polyp, status post laparoscopic limited right colectomy with intraocorporeal anastomosis 1) Postoperative anemia due to acute blood loss Current Visit: Yes Status: Acute Code(s): D62 - ACUTE POSTHEMORRHAGIC ANEMIA SNOMED Code(s): 94276357973857210 (2) COPD (chronic obstructive pulmonary disease) Current Visit: Yes Status: Acute Code(s): J44.9 - CHRONIC OBSTRUCTIVE PULMONARY DISEASE, UNSPECIFIED SNOMED Code(s): 75659348 (3) Colon polyp Current Visit: Yes Status: Acute Code(s): K63.5 - POLYP OF COLON SNOMED Code(s): 00535011 (4) Hypertension Current Visit: Yes Status: Acute Code(s): I10 - ESSENTIAL (PRIMARY) HYPERTENSION SNOMED Code(s): 19589231 (5) Hyperlipidemia Current Visit: Yes Status: Acute Code(s): E78.5 - HYPERLIPIDEMIA, UNSPECIFIED SNOMED Code(s): 81189521 Plan: Continue on current medication regime ,monitoring and symptomatic treatment. Diet advancement as per GI. Aggressive pulmonary toileting with incentive spirometer reinforced. Increase activity as tolerated. Discharge planning in progress for tomorrow as per surgery. Thank you Dr. Schrader for the consult. The impression and plan of care has been dictated as directed. : I performed a history and examination of this patient, discussed the same with the dictator. I agree with the dictator's note ,documented as a scribe. Any additional findings or plans will be noted.
[2018-12-02] MEDS ORDERED: ACETAMINOPHEN TAB 325 MG TAB PO PRN (19:27)
[2018-12-03] MEDS: Acetaminophen-Codeine 300-30mg TAB PO PRN ×3 (03:48→12:45)
[2018-12-03 08:09] LABS: Basophils % (A) 0 %; Eosinophils # (A) 0.2 k/uL (0-0.7); Eosinophils % (A) 3 %; HCT 28.5 % (34.0-46.0); Lymphocytes # (A) 1.5 k/uL (1.0-4.8); Lymphocytes % (A) 19 %; MCH 28.2 pg (25.0-35.0); MCHC 31.7 g/dL (31.0-37.0); MCV 88.8 fL (80.0-100.0); Mean Platelet Volume 6.7; Monocytes # (A) 0.6 k/uL (0-1.0); Monocytes % (A) 8 %; Neutrophils % (A) 67 %; Platelet Count 233 k/uL (150-450); RBC 3.21 m/uL (3.80-5.40); RDW 14.1 % (11.5-15.5); WBC 7.5 k/uL (3.8-10.6)
[2018-12-03] MEDS: LISINOPRIL 10 MG TAB PO SCH (08:38)
[2018-12-03] MEDS: FAMOTIDINE 20 MG TAB PO SCH (08:38)
[2018-12-03] MEDS: NICOTINE 14MG/24HR PATCH TRANSDERM SCH (08:39)
[2018-12-03] MEDS: MONTELUKAST 10 MG TAB PO SCH (08:39)
[2018-12-03 08:48] VITALS: BP 130/64; PULSE 77; RESP 15; TEMP 98.6
--- NOTE | 2018-12-03 12:37 | P.PN ---
<Jess Lott Ilene - Last Filed: 12/03/18 12:36> Subjective Progress Note Date: 12/03/18 CHIEF COMPLAINT: right-sided colon polyp HISTORY OF PRESENT ILLNESS: Patient is status post laparoscopic da Davis assisted limited right colectomy with intracorporeal anastomosis performed on 11/29/2018. Patient denies bowel movements overnight or this morning. She is passing gas. Tolerating diet. Denies nausea or vomiting. Hemoglobin this morning 9.0. PHYSICAL EXAM: VITAL SIGNS: Reviewed. GENERAL: Well-developed in no acute distress. HEENT: No sclera icterus. Extraocular movements grossly intact. Moist buccal mucosa. Head is atraumatic, normocephalic. ABDOMEN: Soft. Nondistended. Nontender. Surgical sites clean dry intact without drainage or signs of infection. NEUROLOGIC: Alert and oriented. Cranial nerves II through XII grossly intact. ASSESSMENT: 1. Right-sided colon polyp, s/p status post laparoscopic da Davis assisted limited right colectomy with intracorporeal anastomosis PLAN: 1. Continue current diet 2. Pain control. Continue Tylenol 3 3. Incentive spirometry 4. Activity as tolerated 5. Anticipate discharge home this afternoon Nurse practitioner note has been reviewed by physician. Signing provider agrees with the documented findings, assessment, and plan of care. Objective - Vital Signs Vital signs: Vital Signs Temp 98.6 F 12/03/18 08:00 Pulse 77 12/03/18 08:00 Resp 15 12/03/18 08:00 BP 130/64 12/03/18 08:00 Pulse Ox 96 12/03/18 08:00 Intake & Output 12/02/18 12/03/18 12/03/18 18:59 06:59 18:59 Intake Total 360 200 200 Balance 360 200 200 Intake: Intake, IV Titration 200 Amount Lactated Ringers 1,000 ml 200 @ 20 mls/hr IV .Q24H [facility] Rx#:[id number] Oral 360 200 Other: Voiding Method Toilet Toilet # Voids 2 2 - Labs CBC & Chem 7: 12/03/18 07:48 12/01/18 05:47 Labs: Abnormal Lab Results - Last 24 Hours (Table) 12/03/18 Range/Units 07:48 RBC 3.21 L (3.80-5.40) m/uL Hgb 9.0 L (11.4-16.0) gm/dL Hct 28.5 L (34.0-46.0) % <BradenshaunnaBenjamin - Last Filed: 12/03/18 16:34> Subjective As above. See discharge summary Objective - Vital Signs Vital signs: Vital Signs Temp 98.6 F 12/03/18 08:00 Pulse 77 12/03/18 08:00 Resp 15 12/03/18 08:00 BP 130/64 12/03/18 08:00 Pulse Ox 96 12/03/18 08:00 Intake & Output 12/02/18 12/03/18 12/03/18 18:59 06:59 18:59 Intake Total 360 200 450 Balance 360 200 450 Intake: Intake, IV Titration 200 Amount Lactated Ringers 1,000 ml 200 @ 20 mls/hr IV .Q24H [facility] Rx#:[id number] Oral 360 450 Other: Voiding Method Toilet Toilet # Voids 2 2 2 - Labs CBC & Chem 7: 12/03/18 07:48 12/01/18 05:47 Labs: Abnormal Lab Results - Last 24 Hours (Table) 12/03/18 Range/Units 07:48 RBC 3.21 L (3.80-5.40) m/uL Hgb 9.0 L (11.4-16.0) gm/dL Hct 28.5 L (34.0-46.0) % Assessment and Plan (1) Colon polyp Status: Acute Code(s): K63.5 - POLYP OF COLON SNOMED Code(s): 42303648
--- NOTE | 2018-12-03 14:39 | P.PN ---
Subjective Progress Note Date: 12/03/18 This is a 33-year-old female status post polyp resection, tolerating low fiber diet as per surgery. Last night had one bowel movement with specks of blood with no more bleeding reported today. Hemoglobin 9.9. Denies chest pain, palpitations or shortness of breath.VSS, maintaining O2 sats in the high 90s on room air. 12/03/2018 tolerating low fiber diet, no nausea, vomiting, no diarrhea. Passing flatus, no bowel movement. Hemoglobin 9.VSS. Denies chest pain, palpitations or shortness of breath. Denies lightheadedness, dizziness or focal deficits. Objective - Vital Signs Vital signs: Vital Signs Temp 98.6 F 12/03/18 08:00 Pulse 77 12/03/18 08:00 Resp 15 12/03/18 08:00 BP 130/64 12/03/18 08:00 Pulse Ox 96 12/03/18 08:00 Intake & Output 12/02/18 12/03/18 12/03/18 18:59 06:59 18:59 Intake Total 360 200 450 Balance 360 200 450 Intake: Intake, IV Titration 200 Amount Lactated Ringers 1,000 ml 200 @ 20 mls/hr IV .Q24H [facility] Rx#:[id number] Oral 360 450 Other: Voiding Method Toilet Toilet # Voids 2 2 2 - Exam PHYSICAL EXAM: VITAL SIGNS: As above GENERAL: Sitting up in bed, no acute distress HEENT: Conjunctivae normal. eyes normal. Oral mucosa moist NECK: No JVD. No thyroid enlargement. No LNs CARDIOVASCULAR: S1, S2 regular. No murmur RESPIRATION: Breath sounds diminished in the bases. No rhonchi or crackles. ABDOMEN: Soft, status post surgery. Laparoscopic surgical sites clean dry and intact, well approximated .No guarding. Positive Bowel sounds. LEGS: No edema. no swelling PSYCHIATRY: Alert and oriented X3, mood and affect normal. NERVOUS SYSTEM: Cranial N 2-12 grossly normal. Moves all 4 limbs. No focal deficits. - Labs CBC & Chem 7: 12/03/18 07:48 12/01/18 05:47 Labs: Abnormal Lab Results - Last 24 Hours (Table) 12/03/18 Range/Units 07:48 RBC 3.21 L (3.80-5.40) m/uL Hgb 9.0 L (11.4-16.0) gm/dL Hct 28.5 L (34.0-46.0) % Assessment and Plan Assessment: ( -Right-sided colon polyp, status post laparoscopic limited right colectomy with intraocorporeal anastomosis Current Visit: Yes Status: Acute Code(s): K63.5 - POLYP OF COLON SNOMED Code(s): 21879735 1) Postoperative anemia due to acute blood loss Current Visit: Yes Status: Acute Code(s): D62 - ACUTE POSTHEMORRHAGIC ANEMIA SNOMED Code(s): 28671721101126171 (2) COPD (chronic obstructive pulmonary disease) Current Visit: Yes Status: Acute Code(s): J44.9 - CHRONIC OBSTRUCTIVE PULMONARY DISEASE, UNSPECIFIED SNOMED Code(s): 64631619 (4) Hypertension Current Visit: Yes Status: Acute Code(s): I10 - ESSENTIAL (PRIMARY) HYPERT ENSION SNOMED Code(s): 85700028 (5) Hyperlipidemia Current Visit: Yes Status: Acute Code(s): E78.5 - HYPERLIPIDEMIA, UNSPECIFIED SNOMED Code(s): 09835817 (6) chronic renal failure stage, stage IIIa Plan: Continue on current medication regime ,monitoring and symptomatic treatment. Diet advancement as per GI. Continue with incentive spirometer at home as advised here X2 weeks. Increase activity as tolerated. Discharge planning in progress as per surgery, today. Follow-up with PCP in one week. Thank you Dr. Schrader for the consult. The impression and plan of care has been dictated as directed. : I performed a history and examination of this patient, discussed the same with the dictator. I agree with the dictator's note ,documented as a scribe. Any additional findings or plans will be noted.
--- NOTE | 2018-12-03 16:35 | P.DS ---
Providers Date of admission: 11/29/18 07:21 Attending physician: Benjamin Schrader Consults: 11/29/18 13:23 Consult Physician Routine Consulting Provider: Patrick Cowan Consult Reason/Comments: medical management Do you want consulting provider notified?: Yes Primary care physician: Patrick Cowan - Discharge Diagnosis(es) (1) Colon polyp Patient doing well today. Hemoglobin 9.0. No bowel movement since yesterday. Patient underwent admission for elective robotic colectomy earlier this week. Postop was she was noted to have a drop in hemoglobin and required 1 unit of transfusion. The patient was having bloody stools. Patient is doing well at this time. We'll discharge today. Follow-up one week. Status: Acute Plan - Discharge Summary Discharge Rx Participant: Yes New Discharge Prescriptions: New Acetaminophen-Codeine 300-30mg [Tylenol w/codeine #3] 1 tab PO Q4H PRN 3 Days #18 tablet PRN Reason: Pain No Action Simvastatin 40 mg PO HS Raloxifene HCl 60 mg PO QAM Lisinopril-Hctz 10-12.5 mg [Zestoretic 10-12.5] 1 tab PO QAM Calcium Citrate/Vitamin D3 [Calcitrate + Vit D Caplet] 1 tab PO DAILY Aspirin [Adult Low Dose Aspirin EC] 81 mg PO DAILY Montelukast [Singulair] 10 mg PO DAILY Fexofenadine HCl [Rosemary Allergy] 180 mg PO DAILY Nicotine 14Mg/24Hr Patch [Habitrol] 1 patch TOPICAL DAILY Discharge Medication List Aspirin [Adult Low Dose Aspirin EC] 81 mg PO DAILY 09/07/17 [History] Calcium Citrate/Vitamin D3 [Calcitrate + Vit D Caplet] 1 tab PO DAILY 09/07/17 [History] Lisinopril-Hctz 10-12.5 mg [Zestoretic 10-12.5] 1 tab PO QAM 09/07/17 [History] Raloxifene HCl 60 mg PO QAM 09/07/17 [History] Simvastatin 40 mg PO HS 09/07/17 [History] Fexofenadine HCl [Rosemary Allergy] 180 mg PO DAILY 11/22/18 [History] Montelukast [Singulair] 10 mg PO DAILY 11/22/18 [History] Nicotine 14Mg/24Hr Patch [Habitrol] 1 patch TOPICAL DAILY 11/22/18 [History] Acetaminophen-Codeine 300-30mg [Tylenol w/codeine #3] 1 tab PO Q4H PRN 3 Days #18 tablet 11/30/18 [Rx] Follow up Appointment(s)/Referral(s): Benjamin Schrader MD [Medical Doctor] - 12/16/18 10:15 am Patrick Cowan DO [Primary Care Provider] - 12/10/18 10:40 am [facility], [NON-STAFF] - Ambulatory/Diagnostic Orders: Complete Blood Count w/diff [LAB.AMB] Location: None Selected Patient Instructions/Handouts: Acetaminophen/Codeine (By mouth), Low Fiber Diet (DC), Colectomy (DC), Colectomy Diet (DC) Activity/Diet/Wound Care/Special Instructions: No driving while taking Tylenol #3 No lifting over 10 pounds You may shower. No soaking or tub baths Very light activity until you are reevaluated at your follow up appointment with your surgeon Discharge Disposition: HOME SELF-CARE
== END 2018-12-03 15:02 | disposition home or self-care (01) | DRG 330 ==
LOC: 2ORMAIN 07:21 → 4SSUR 13:59
PROVIDERS: ADMIT Surgery; ATTEND Surgery
PROC: 8E0W4CZ Robotic Assisted Procedure of Trunk Region, Percutaneous Endoscopic Approach (ICD-10-PCS; 2018-11-29)
PROC: 0DBK4ZZ Excision of Ascending Colon, Percutaneous Endoscopic Approach (ICD-10-PCS; principal; 2018-11-29 09:10)
PROC: 30233N1 Transfusion of Nonautologous Red Blood Cells into Peripheral Vein, Percutaneous Approach (ICD-10-PCS; 2018-12-01)
DX: D12.2 Benign neoplasm of ascending colon (principal); D62 Acute posthemorrhagic anemia; J44.9 Chronic obstructive pulmonary disease, unspecified; N18.3 Chronic kidney disease, stage 3 (moderate); E78.5 Hyperlipidemia, unspecified; I12.9 Hypertensive chronic kidney disease with stage 1 through stage 4 chronic kidney disease, or unspecified chronic kidney disease; M19.90 Unspecified osteoarthritis, unspecified site; Z79.82 Long term (current) use of aspirin; Z79.899 Other long term (current) drug therapy; Z87.891 Personal history of nicotine dependence; Z98.51 Tubal ligation status; Z91.030 Bee allergy status
CPT/HCPCS: 80048; 85025; 85027; 86850; 86900; 86901; 86920; 88309

== ENCOUNTER → 2018-12-14 | Outpatient (CLI) | payer MEDICARE ==
--- NOTE | 2018-12-14 11:57 | BD ---
EXAMINATION TYPE: Axial Bone Density DATE OF EXAM: 12/14/2018 COMPARISON: 2017 CLINICAL HISTORY: post menopausal, N95.1 Height: 5'5 1/2 Weight: 117 FRAX RISK QUESTIONS: Family History (Parent hip fracture): y History of Fracture in Adulthood: y Secondary Osteoporosis: RISK FACTORS HISTORY OF: History of Wrist Fracture: left When: child Family History of Osteoporosis: y Postmenopausal woman: y MEDICATIONS: -----Osteoporosis Medications: -----Which medication: Evista -----when : 10 years Additional Medications: blood pressure, cholesterol, Evista Additional History: EXAM MEASUREMENTS: Bone mineral densitometry was performed using the [employer] System. Bone mineral density as measured about the Lumbar spine is: ----- L1-L4(G/cm2): 1.116 T Score Values are as follows: ----- L2: -0.4 ----- L3: 0.3 ----- L4: -1.0 ----- L1-L4: -0.5 Bone mineral density has: Increased 4.0% since study of: 10/27/2016 Bone mineral density about the R hip (g/cm2): 0.618 Bone mineral density about the L hip (g/cm2): 0.653 T Score values are as follows: -----R Neck: -3.0 -----L Neck: -2.8 -----R Total: -2.8 -----L Total: -2.9 Bone mineral density has: Decreased -8.4% since study of: 10/27/2016 IMPRESSION: Osteoporosis (T Score less than -2.5). There is increased fracture risk and therapy is usually indicated based on age. Re-Screen 1-2 years. NOTE: T-SCORE=SD OF THE YOUNG ADULT MEAN.
--- NOTE | 2018-12-15 09:26 | MM ---
Reason for exam: screening (asymptomatic). Last mammogram was performed 1 year and 1 month ago. History: Patient is postmenopausal and is nulliparous. Benign stereotactic core biopsy of the right breast, December 31, 2000. Benign core biopsy of the right breast. Physical Findings: A clinical breast exam by your physician is recommended on an annual basis and results should be correlated with mammographic findings. MG 3D Screening Mammo W/Cad Bilateral CC and MLO view(s) were taken. Prior study comparison: November 18, 2017, bilateral MG 3d screening mammo w/cad. October 27, 2016, bilateral MG 3d screening mammo w/cad. The breast tissue is extremely dense which could obscure a lesion on mammography. Benign appearing bilateral calcifications. No suspicious abnormality. Right biopsy marker noted. No significant changes when compared with prior studies. ASSESSMENT: Benign, BI-RAD 2 RECOMMENDATION: Routine screening mammogram of both breasts in 1 year.
== END | disposition home or self-care (01) ==
LOC: RADMAMWWP 08:04
PROVIDERS: ATTEND Obstetrics & Gynecology
DX: Z12.31 Encounter for screening mammogram for malignant neoplasm of breast (principal); M81.0 Age-related osteoporosis without current pathological fracture
CPT/HCPCS: 77063; 77067; 77080

== ENCOUNTER → 2019-02-22 | Outpatient (CLI) | payer MEDICARE ==
--- NOTE | 2019-02-22 16:09 | XR ---
EXAM TYPE: LUMBAR SPINE X RAY SERIES COMPARISON: NONE HISTORY: Pain TECHNIQUE: 3 views views are submitted. FINDINGS: Alignment is anatomic. The pedicles are intact. The transverse processes are intact. There is subt le curvature the spine with diffuse osteopenia. Calcifications in the left upper quadrant are noted a re nonspecific. Vascular calcifications are seen. There is multilevel degenerative disc disease most marked findings at L2-3 and L3-L4. IMPRESSION: 1. Degenerative disc disease most pronounced at L2-L3. Recommend follow-up MRI. 2. Calcification left upper quadrant could be related to a small renal stone correlate clinically.
== END | disposition home or self-care (01) ==
LOC: RADXRMAIN 15:43
PROVIDERS: ATTEND Family Medicine
DX: M51.36 Other intervertebral disc degeneration, lumbar region (principal)
CPT/HCPCS: 72100

== ENCOUNTER → 2019-12-13 | Day surgery (SDC) | payer MEDICARE ==
[2019-12-08 11:07] VITALS: BMI 21.7
[~2019-12-13] MED LIST changes: -ALVIMOPAN 12 MG CAPSULE PO ONE; -DEXAMETHASONE SOD PHOSPHATE 10 MG/ML 1 ML VIAL IV ONE; -HEPARIN SODIUM,PORCINE 5,000 UNIT/ML 1 ML VIAL SQ ONE; -HYDROmorphone 0.5 MG/0.5 ML SYRINGE IVP PRN; +LACTATED RINGERS 1,000 ML IV SCH; +LIDOCAINE 1% (10MG/ML) FOR IV START INTRADERMA ONE; -LIDOCAINE 1% 20 ML VIAL (10MG/ML) FOR IV START INTRADERMA PRN; +LIDOCAINE 1% INJ 10MG/ML (20 ML MDV) ONE; -ONDANSETRON 4 MG/2 ML VIAL IVP ONE; -ONDANSETRON 4 MG/2 ML VIAL IVP PRN; +PROPOFOL 10 MG/ML 20 ML VIAL IV ONE; -metroNIDAZOLE-NS PMX 500 MG in SALINE 1 100ML.BAG IVPB ONE
[2019-12-13 10:49] VITALS: RESP 16; TEMP 97.8
--- NOTE | 2019-12-13 11:41 | P.GSHP ---
History of Present Illness H&P Date: 12/13/19 Chief Complaint: Colon cancer screening Patient here today for colonoscopy. Last colonoscopy 1 year ago. Patient had a polyp requiring surgical resection 1 year ago. No bowel complaints currently. Past Medical History Past Medical History: Hyperlipidemia, Hypertension Additional Past Medical History / Comment(s): hx COLON POLYP. hx of migraine, History of Any Multi-Drug Resistant Organisms: None Reported Past Surgical History: Appendectomy, Bowel Resection, Tonsillectomy, Tubal Ligation Additional Past Surgical History / Comment(s): COLONOSCOPY. SINUS SURGERY. D & C, rt trigger thumb surgery Past Anesthesia/Blood Transfusion Reactions: No Reported Reaction Smoking Status: Former smoker - Past Family History Father Family Medical History: Cancer Medications and Allergies Home Medications Medication Instructions Recorded Confirmed Type Aspirin [Adult Low Dose Aspirin EC] 81 mg PO DAILY 09/07/17 12/08/19 History Calcium Citrate/Vitamin D3 1 tab PO DAILY 09/07/17 12/08/19 History [Calcitrate + Vit D Caplet] Lisinopril-Hctz 10-12.5 mg 1 tab PO QAM 09/07/17 12/08/19 History [Zestoretic 10-12.5] Raloxifene HCl 60 mg PO QAM 09/07/17 12/08/19 History Simvastatin 40 mg PO HS 09/07/17 12/08/19 History Montelukast [Singulair] 10 mg PO DAILY 11/22/18 12/08/19 History EPINEPHrine (Auto Inject) [Epipen] 0.3 mg IM ONCE PRN 12/08/19 12/08/19 History Multivitamins, Thera [Multivitamin 1 tab PO DAILY 12/08/19 12/08/19 History (formulary)] Allergies Allergy/AdvReac Type Severity Reaction Status Date / Time bee venom protein (honey bee) Allergy Anaphylaxis Verified 12/13/19 10:46 Surgical - Exam Vital Signs Temp Pulse Resp BP Pulse Ox 97.8 F 79 16 143/67 95 12/13/19 10:48 12/13/19 10:48 12/13/19 10:48 12/13/19 10:48 12/13/19 10:48 Physical exam: General: Well-developed, well-nourished HEENT: Normocephalic, sclerae nonicteric Abdomen: Nontender, nondistended Extremities: No edema Neuro: Alert and oriented Assessment and Plan (1) Colon cancer screening Narrative/Plan: Will proceed with colonoscopy at this time Current Visit: Yes Status: Acute Code(s): Z12.11 - ENCOUNTER FOR SCREENING FOR MALIGNANT NEOPLASM OF COLON SNOMED Code(s): 961225001
--- NOTE | 2019-12-13 11:42 | P.PCN ---
Date of Procedure: 12/13/19 Procedure(s) Performed: PREOPERATIVE DIAGNOSIS: Colon cancer screening, personal history of colon polyps POSTOPERATIVE DIAGNOSIS: Mild diverticulosis PROCEDURE: Colonoscopy ANESTHESIA: MAC SURGEON: Benjamin Schrader M.D. SPECIMENS: None ENDOSCOPIC PROCEDURE: The patient was placed on the endoscopy table in the left decubitus position. The Olympus colonoscope was inserted into the anus and passed under direct visualization to the ileocolonic anastomosis. The anastomosis was widely patent. The transverse descending sigmoid and rectum appeared normal. There was mild left-sided diverticulosis present. Digital rectal examination was normal. The patient was taken to the recovery room in stable condition per anesthesia guidelines. RECOMMENDATIONS: Resume diet. Follow colonoscopy 3 years.
[2019-12-13 12:06] VITALS: BP 100/68; PULSE 68
== END ==
LOC: ORWHC2ENDO 09:55
PROVIDERS: ATTEND Surgery
DX: Z12.11 Encounter for screening for malignant neoplasm of colon (principal); K57.30 Diverticulosis of large intestine without perforation or abscess without bleeding; Z86.010 Personal history of colon polyps; I10 Essential (primary) hypertension; E78.5 Hyperlipidemia, unspecified; G43.909 Migraine, unspecified, not intractable, without status migrainosus; Z79.82 Long term (current) use of aspirin; Z91.030 Bee allergy status; Z79.899 Other long term (current) drug therapy; Z90.49 Acquired absence of other specified parts of digestive tract; Z98.51 Tubal ligation status; Z90.89 Acquired absence of other organs; Z87.891 Personal history of nicotine dependence; Z80.9 Family history of malignant neoplasm, unspecified
CPT/HCPCS: J2001; J2704; G0105

== ENCOUNTER → 2019-12-16 | Outpatient (CLI) | payer MEDICARE ==
--- NOTE | 2019-12-20 08:28 | MM ---
Reason for exam: screening (asymptomatic). Last mammogram was performed 1 year ago. History: Patient is postmenopausal and is nulliparous. Benign stereotactic core biopsy of the right breast, December 31, 2000. Benign core biopsy of the right breast. Took hormonal contraceptives for 7 years. Physical Findings: A clinical breast exam by your physician is recommended on an annual basis and results should be correlated with mammographic findings. MG 3D Screening Mammo W/Cad Bilateral CC and MLO view(s) were taken. Prior study comparison: December 14, 2018, bilateral MG 3d screening mammo w/cad. November 18, 2017, bilateral MG 3d screening mammo w/cad. The breast tissue is heterogeneously dense. This may lower the sensitivity of mammography. Benign appearing bilateral calcifications. No significant changes when compared with prior studies. ASSESSMENT: Benign, BI-RAD 2 RECOMMENDATION: Routine screening mammogram of both breasts in 1 year.
== END | disposition home or self-care (01) ==
LOC: RADMAMWWP 07:51
PROVIDERS: ATTEND Obstetrics & Gynecology
DX: Z12.31 Encounter for screening mammogram for malignant neoplasm of breast (principal)
CPT/HCPCS: 77063; 77067

== ENCOUNTER → 2020-12-24 | Outpatient (CLI) | payer MEDICARE ==
--- NOTE | 2020-12-24 16:39 | BD ---
EXAMINATION TYPE: Axial Bone Density DATE OF EXAM: 12/24/2020 COMPARISON: 12/14/2018 CLINICAL HISTORY: 73-year-old female postmenopausal screening Height: 66 Weight: 139.7 FRAX RISK QUESTIONS: Alcohol (3 or more units per day): no Family History (Parent hip fracture): yes Glucocorticoids (More than 3mos): no (Ex: prednisone, prednisolone, methylprednisolone, dexamethasone, and hydrocortisone). History of Fracture in Adulthood: yes Secondary Osteoporosis: 1. Type 1 Diabetes: no 2. Hyperthyroidism: no 3. Menopause before 45: no 4. Malnutrition: no 5. Chronic liver disease: no Rheumatoid Arthritis: no Current Tobacco Use: no RISK FACTORS HISTORY OF: History of Wrist Fracture: left wrist as a child Surgery to Spine/Hip(right/left)/Wrist (right/left): no Family History of Osteoporosis: yes Active: yes Diet low in dairy products/other sources of calcium: no Postmenopausal woman: age 54 MEDICATIONS: cholesterol, blood pressure meds Osteoporosis Medications: evista How Lon years Additional Medications: Additional History: EXAM MEASUREMENTS: Bone mineral densitometry was performed using the [employer] System. Bone mineral density as measured about the Lumbar spine is: ----- L1-L4(G/cm2): 1.115 T Score Values are as follows: ----- L2: -0.4 ----- L3: 0.4 ----- L4: -1.8 ----- L1-L4: -0.5 Bone mineral density has: decreased -2.8 % since study of: 12.14.2018 Bone mineral density about the R hip (g/cm2): 0.645 Bone mineral density about the L hip (g/cm2): .0647 T Score values are as follows: -----R Neck: -2.8 -----L Neck: -2.8 -----R Total: -2.6 -----L Total: -2.6 Bone mineral density has: increased 4.1 % since study of: 12.14.2018 IMPRESSION: Osteoporosis (T Score less than -2.5). There is increased fracture risk and therapy is usually indicated based on age. Re-Screen 1-2 years. NOTE: T-SCORE=SD OF THE YOUNG ADULT MEAN.
--- NOTE | 2020-12-25 12:08 | MM ---
Reason for exam: screening (asymptomatic). Last mammogram was performed 1 year ago. History: Patient is postmenopausal and is nulliparous. Benign stereotactic core biopsy of the right breast, December 31, 2000. Benign core biopsy of the right breast. Took hormonal contraceptives for 7 years. Physical Findings: A clinical breast exam by your physician is recommended on an annual basis and results should be correlated with mammographic findings. MG 3D Screening Mammo W/Cad Bilateral CC and MLO view(s) were taken. Prior study comparison: December 16, 2019, bilateral MG 3d screening mammo w/cad. December 14, 2018, bilateral MG 3d screening mammo w/cad. The breast tissue is extremely dense which could obscure a lesion on mammography. There are benign appearing round dystrophic calcifications bilaterally. Previous mammotome biopsy in the right breast. There is no discrete abnormality. ASSESSMENT: Benign, BI-RAD 2 RECOMMENDATION: Routine screening mammogram of both breasts in 1 year.
== END | disposition home or self-care (01) ==
LOC: RADMAMWWP 07:01
PROVIDERS: ATTEND Obstetrics & Gynecology
DX: Z12.31 Encounter for screening mammogram for malignant neoplasm of breast (principal)
CPT/HCPCS: 77063; 77067; 77080

== ENCOUNTER → 2021-10-31 | Outpatient (CLI) | payer MEDICARE ==
--- NOTE | 2021-11-01 07:13 | US ---
EXAMINATION TYPE: US kidneys/renal and bladder DATE OF EXAM: 10/31/2021 COMPARISON: NONE CLINICAL HISTORY: N18.30 CHRONIC KIDNEY DISEASE, STAGE 3 UNSPECIFIED. CKD EXAM MEASUREMENTS: Right Kidney: 11.7 x 4.8 x 4.7 cm Left Kidney: 7.8 x 4.3 x 3.6 cm Right Kidney: no evidence of hydronephrosis Left Kidney: atrophic, echogenic, thin renal cortex Bladder: appears wnl Bilateral Jets seen: yes There is no evidence for hydronephrosis at this point in time. No nephrolithiasis is seen. No haleigh s are identified. The urinary bladder is anechoic. Bilateral ureteral jets are seen. IMPRESSION: Atrophic left kidney.
== END | disposition home or self-care (01) ==
LOC: RADUSWWP 16:19
PROVIDERS: ATTEND Internal Medicine Nephrology
DX: N18.30 Chronic kidney disease, stage 3 unspecified (principal); N26.1 Atrophy of kidney (terminal)
CPT/HCPCS: 76770

== ENCOUNTER → 2021-11-19 | Outpatient (CLI) | payer MEDICARE ==
[2021-11-19 22:29] LABS: Basophils # (A) 0.07 X 10*3/uL (0.00-0.10); Basophils % (A) 0.9 %; Eosinophils # (A) 0.08 X 10*3/uL (0.04-0.35); HCT 44.2 % (37.2-46.3); HGB 13.6 g/dL (12.0-15.0); Immature Grans, Automated 0.3 %; Lymphocytes # (A) 1.62 X 10*3/uL (0.90-5.00); Lymphocytes % (A) 20.3 %; MCH 26.6 pg (27.0-32.0); MCHC 30.8 g/dL (32.0-37.0); MCV 86.5 fL (80.0-97.0); Mean Platelet Volume 10.1 fL (9.5-12.2); Monocytes # (A) 0.73 X 10*3/uL (0.20-1.00); Monocytes % (A) 9.1 %; NRBC Per 100 WBC 0 /100 WBCS (0.0-0.0); Neutrophils # (A) 5.47 X 10*3/uL (1.80-7.70); Neutrophils % (A) 68.4 %; Platelet Count 305 X 10*3/uL (140-440); RBC 5.11 X 10*6/uL (4.10-5.20); RDW 14.6 % (11.5-14.5); WBC 7.99 X 10*3/uL (4.50-10.00)
[2021-11-19 22:55] LABS: Appearance,Urine Clear (Clear); Bilirubin,Urine Negative (Negative); Blood,Urine Negative (Negative); Color,Urine Yellow (Yellow); Ketones,Urine Negative (Negative); Nitrite,Urine Negative (Negative); PH, Urine 6.5 (5.0-8.0); Specific Gravity,Urine 1.004 (1.001-1.030); Urobilinogen,Urine 0.2 (0.2,1.0)
[2021-11-19 23:12] LABS: % Iron Saturation 28.01 (12.00-45.00); African American GFR (CKD) 56.1 (60.0-200.0); Anion Gap 12.6 mmol/L (10.00-18.00); BUN/Creat Ratio 13.18 Ratio (12.00-20.00); Blood Urea Nitrogen 14.5 mg/dL (9.0-27.0); Calcium 9.7 mg/dL (8.7-10.3); Carbon Dioxide 24.4 mmol/L (20.0-27.5); Non-African American GFR(CKD) 48.4 (60.0-200.0); Phosphorus 3.9 mg/dL (2.4-5.1); Potassium 4.6 mmol/L (3.5-5.5); Uric Acid 4.7 mg/dL (2.9-7.7)
[2021-11-19 23:28] LABS: Albumin 4.5 g/dL (3.8-4.9); Ferritin 64.3 ng/mL (10.0-291.0)
[2021-11-20 06:19] LABS: Microalbumin Creatinine Ratio <30 mg/g Creat (0-30); Urine Creatinine 16.3 mg/dL (28.0-217.0)
== END | disposition home or self-care (01) ==
LOC: LABWHC1 14:41
PROVIDERS: ATTEND Internal Medicine Nephrology
DX: N18.30 Chronic kidney disease, stage 3 unspecified (principal); E55.9 Vitamin D deficiency, unspecified; N25.81 Secondary hyperparathyroidism of renal origin; M10.9 Gout, unspecified; N39.0 Urinary tract infection, site not specified; D64.9 Anemia, unspecified; R80.9 Proteinuria, unspecified
CPT/HCPCS: 36415; 80048; 81003; 82040; 82043; 82306; 82570; 82728; 83540; 83550; 83735; 83970; 84100; 84550; 85025

== ENCOUNTER → 2021-12-25 | Outpatient (CLI) | payer MEDICARE ==
--- NOTE | 2021-12-26 07:48 | MM ---
Reason for Exam: Screening (asymptomatic). Last screening mammogram was performed 12 month(s) ago. Patient History: Menarche at age 11. Patient has no children. Postmenopausal. Patient used Hormonal Contraceptives for 7 years. Benign Core Biopsy on the right side. 12/31/2000, Benign Stereotactic Core Biopsy on the right side. Risk Values: Lucille 5 year model risk: 2.9%. NCI Lifetime model risk: 5.5%. Prior Study Comparison: 12/14/2018 Bilateral Screening Mammogram, [facility]. 12/16/2019 Bilateral Screening Mammogram, [facility]. 12/24/2020 Bilateral Screening Mammogram, [facility]. Tissue Density: The breast tissue is heterogeneously dense. This may lower the sensitivity of mammography. Findings: Analyzed By CAD. There is no suspicious group of microcalcifications or new suspicious mass in either breast. Stable benign-appearing calcifications noted bilaterally. Overall Assessment: Benign, BI-RAD 2 Management: Screening Mammogram of both breasts in 1 year. A clinical breast exam by your physician is recommended on an annual basis and results should be correlated with mammographic findings. Electronically signed and approved by: Kali Wilson M.D. Radiologis
== END | disposition home or self-care (01) ==
LOC: RADMAMWWP 07:47
PROVIDERS: ATTEND Obstetrics & Gynecology
DX: Z12.31 Encounter for screening mammogram for malignant neoplasm of breast (principal)
CPT/HCPCS: 77063; 77067

== ENCOUNTER → 2022-02-18 | Outpatient (CLI) | payer MEDICARE ==
[2022-02-18 14:35] LABS: African American GFR (CKD) 50.5 (60.0-200.0); Anion Gap 9.7 mmol/L (10.00-18.00); BUN/Creat Ratio 19.5 Ratio (12.00-20.00); Blood Urea Nitrogen 23.4 mg/dL (9.0-27.0); Calcium 9.3 mg/dL (8.7-10.3); Carbon Dioxide 25.3 mmol/L (20.0-27.5); Non-African American GFR(CKD) 43.6 (60.0-200.0); Potassium 4.5 mmol/L (3.5-5.5)
== END | disposition home or self-care (01) ==
LOC: LABWHC1 09:35
PROVIDERS: ATTEND Nurse Practitioner Family
DX: N18.31 Chronic kidney disease, stage 3a (principal)
CPT/HCPCS: 36415; 80048

== ENCOUNTER → 2022-03-18 | Outpatient (CLI) | payer MEDICARE ==
[2022-03-18 14:30] LABS: Chol/HDL Ratio 2.69 Ratio; LDL Cholesterol,Calculated 81.2 mg/dL (0.0-131.0)
[2022-03-18 14:35] LABS: Basophils # (A) 0.06 X 10*3/uL (0.00-0.10); Basophils % (A) 0.7 %; Eosinophils # (A) 0.08 X 10*3/uL (0.04-0.35); HCT 40.7 % (37.2-46.3); Immature Grans, Automated 0.9 %; Lymphocytes # (A) 1.61 X 10*3/uL (0.90-5.00); Lymphocytes % (A) 19.7 %; MCH 26.5 pg (27.0-32.0); MCHC 31.9 g/dL (32.0-37.0); MCV 83.1 fL (80.0-97.0); Mean Platelet Volume 9.2 fL (9.5-12.2); Monocytes # (A) 0.73 X 10*3/uL (0.20-1.00); Monocytes % (A) 8.9 %; NRBC Per 100 WBC 0 /100 WBCS (0.0-0.0); Neutrophils # (A) 5.64 X 10*3/uL (1.80-7.70); Neutrophils % (A) 68.8 %; Platelet Count 324 X 10*3/uL (140-440); RDW 14.3 % (11.5-14.5); WBC 8.19 X 10*3/uL (4.50-10.00)
[2022-03-18 15:34] LABS: % Iron Saturation 30.65 (12.00-45.00); African American GFR (CKD) 48.5 (60.0-200.0); BUN/Creat Ratio 20.32 Ratio (12.00-20.00); Blood Urea Nitrogen 25.2 mg/dL (9.0-27.0); Calcium 9.1 mg/dL (8.7-10.3); Carbon Dioxide 23.5 mmol/L (20.0-27.5); Non-African American GFR(CKD) 41.9 (60.0-200.0); Phosphorus 3.2 mg/dL (2.4-5.1); Uric Acid 5.6 mg/dL (2.9-7.7)
[2022-03-18 15:46] LABS: Albumin 4.3 g/dL (3.8-4.9); Ferritin 88.1 ng/mL (10.0-291.0)
[2022-03-18 15:56] LABS: Appearance,Urine Clear (Clear); Bilirubin,Urine Negative (Negative); Blood,Urine Negative (Negative); Color,Urine Yellow (Yellow); Ketones,Urine Negative (Negative); Nitrite,Urine Negative (Negative); Specific Gravity,Urine 1.008 (1.001-1.030); Urobilinogen,Urine 0.2 (0.2,1.0)
[2022-03-18 16:05] LABS: Bacteria,Urine None Seen /HPF (None Seen)
[2022-03-18 18:58] LABS: Microalbumin Creatinine Ratio <30 mg/g Creat (0-30)
== END | disposition home or self-care (01) ==
LOC: LABWHC1 10:24
PROVIDERS: ATTEND Nurse Practitioner Family
DX: Z00.00 Encounter for general adult medical examination without abnormal findings (principal); I12.9 Hypertensive chronic kidney disease with stage 1 through stage 4 chronic kidney disease, or unspecified chronic kidney disease; N18.31 Chronic kidney disease, stage 3a; E55.9 Vitamin D deficiency, unspecified; N25.81 Secondary hyperparathyroidism of renal origin; M10.9 Gout, unspecified; N39.0 Urinary tract infection, site not specified; D64.9 Anemia, unspecified
CPT/HCPCS: 36415; 80048; 80061; 81001; 82040; 82043; 82306; 82570; 82728; 83036; 83540; 83550; 83735; 83970; 84100; 84550; 85025

== ENCOUNTER → 2022-08-21 | Outpatient (CLI) | payer MEDICARE ==
[2022-08-21 15:25] LABS: Appearance,Urine Clear (Clear); Bilirubin,Urine Negative (Negative); Blood,Urine Negative (Negative); Color,Urine Yellow (Yellow); Ketones,Urine Negative (Negative); Nitrite,Urine Negative (Negative); PH, Urine 5.5 (5.0-8.0); Specific Gravity,Urine 1.009 (1.001-1.030); Urobilinogen,Urine 0.2 (0.2,1.0)
[2022-08-21 15:38] LABS: Basophils # (A) 0.07 X 10*3/uL (0.00-0.10); Basophils % (A) 0.8 %; Eosinophils # (A) 0.24 X 10*3/uL (0.04-0.35); Eosinophils % (A) 2.9 %; HCT 43.1 % (37.2-46.3); HGB 13.3 g/dL (12.0-15.0); Immature Grans, Automated 0.6 %; Lymphocytes # (A) 2.57 X 10*3/uL (0.90-5.00); Lymphocytes % (A) 31.2 %; MCH 26.4 pg (27.0-32.0); MCHC 30.9 g/dL (32.0-37.0); MCV 85.7 fL (80.0-97.0); Mean Platelet Volume 9.6 fL (9.5-12.2); Monocytes # (A) 0.95 X 10*3/uL (0.20-1.00); Monocytes % (A) 11.5 %; NRBC Per 100 WBC 0 /100 WBCS (0.0-0.0); Neutrophils # (A) 4.36 X 10*3/uL (1.80-7.70); Platelet Count 298 X 10*3/uL (140-440); RBC 5.03 X 10*6/uL (4.10-5.20); RDW 14.5 % (11.5-14.5); WBC 8.24 X 10*3/uL (4.50-10.00)
[2022-08-21 15:59] LABS: Bacteria,Urine None Seen /HPF (None Seen)
[2022-08-21 16:05] LABS: Albumin 4.4 g/dL (3.8-4.9); Ferritin 62.9 ng/mL (10.0-291.0)
[2022-08-21 16:09] LABS: % Iron Saturation 33.02 (12.00-45.00); African American GFR (CKD) 45.5 (60.0-200.0); Anion Gap 11.7 mmol/L (10.00-18.00); BUN/Creat Ratio 17.54 Ratio (12.00-20.00); Blood Urea Nitrogen 22.8 mg/dL (9.0-27.0); Calcium 9.9 mg/dL (8.7-10.3); Carbon Dioxide 24.3 mmol/L (20.0-27.5); Magnesium 1.9 mg/dL (1.5-2.4); Non-African American GFR(CKD) 39.3 (60.0-200.0); Potassium 5.1 mmol/L (3.5-5.5); Uric Acid 5.7 mg/dL (2.9-7.7)
[2022-08-21 19:28] LABS: Microalbumin Creatinine Ratio <30 mg/g Creat (0-30); Urine Creatinine 51.6 mg/dL (28.0-217.0)
== END | disposition home or self-care (01) ==
LOC: LABWHC1 08:48
PROVIDERS: ATTEND Nurse Practitioner Family
DX: E55.9 Vitamin D deficiency, unspecified (principal); N25.81 Secondary hyperparathyroidism of renal origin; M10.9 Gout, unspecified; N39.0 Urinary tract infection, site not specified; N18.31 Chronic kidney disease, stage 3a; D63.1 Anemia in chronic kidney disease
CPT/HCPCS: 36415; 80048; 81001; 82040; 82043; 82306; 82570; 82728; 83540; 83550; 83735; 83970; 84100; 84550; 85025

== ENCOUNTER → 2022-12-26 | Outpatient (CLI) | payer MEDICARE ==
--- NOTE | 2022-12-26 15:15 | BD ---
EXAMINATION TYPE: Axial Bone Density DATE OF EXAM: 12/26/2022 CLINICAL HISTORY: 77 years old Female. ICD-10 CODE: Z78.0 ASYMPTOMATIC MENOPAUSAL STATE Height: 65.25in Weight: 137lb FRAX RISK QUESTIONS: Family History (Parent hip fracture): yes History of Fracture in Adulthood: yes Secondary Osteoporosis: RISK FACTORS HISTORY OF: Family History of Osteoporosis: yes Active: yes Postmenopausal woman: yes Adrenal Insufficiency: stage 3b kidney failure MEDICATIONS: Osteoporosis Medications: Which medication: Fosamax in the past Evista current How Lon years Additional Medications: cholesterol med, bp med, calcium with vitamin d Additional History: EXAM MEASUREMENTS: Bone mineral densitometry was performed using the [employer] System. Bone mineral density as measured about the Lumbar spine is: ----- L1-L4(G/cm2): 1.158 T Score Values are as follows: ----- L1: 0.3 ----- L2: 0.2 ----- L3: 0.5 ----- L4: -1.4 ----- L1-L4: -0.2 Z Score Values are as follows: ----- L1: 2.2 ----- L2: 2.1 ----- L3: 2.5 ----- L4: 0.5 ----- L1-L4: 1.7 Bone mineral density has: Increased 3.9% since study of: 12-24-20 Bone mineral density about the R hip (g/cm2): 0.689 Bone mineral density about the L hip (g/cm2): 0.701 T Score values are as follows: -----R Neck: -2.9 -----L Neck: -2.6 -----R Total: -2.5 -----L Total: -2.4 Z Score values are as follows: -----R Neck: -0.7 -----L Neck: -0.5 -----R Total: -0.5 -----L Total: -0.5 Bone mineral density has: Increased 2.2% since study of: 12-24-20 FRAX%s: The graph provided illustrates a 52.1% chance for a major osteoporotic fx and a 39.4% chance for the hips probability for fx in 10 years time. IMPRESSION: Osteopenia (T Score between -2.5 and -1). There is slightly increased risk of fracture and the patient may be considered for treatment. Re-Screen 2-5 years. NOTE: T-SCORE=SD OF THE YOUNG ADULT MEAN.
--- NOTE | 2022-12-29 20:35 | MM ---
Reason for Exam: Screening (asymptomatic). Last screening mammogram was performed 12 month(s) ago. Patient History: Menarche at age 11. Patient has no children. Postmenopausal. Patient used Hormonal Contraceptives for 7 years. Benign Core Biopsy on the right side. 12/31/2000, Benign Stereotactic Core Biopsy on the right side. Risk Values: Lucille 5 year model risk: 2.9%. NCI Lifetime model risk: 5.1%. Prior Study Comparison: 12/16/2019 Bilateral Screening Mammogram, [facility]. 12/24/2020 Bilateral Screening Mammogram, [facility]. 12/25/2021 Bilateral MG 3D screening mammo w/cad, [facility]. Tissue Density: The breast tissue is heterogeneously dense. This may lower the sensitivity of mammography. Findings: Analyzed By CAD. Round and punctate calcifications redemonstrated bilaterally. Microclip right breast from prior biopsy. Asymmetric density medial right CC view at middle depth is slightly more defined and incompletely disperses on 3-D images. Otherwise, no significant change. Overall Assessment: Incomplete: need additional imaging evaluation, BI-RAD 0 Management: Special View Mammogram of the right breast. Including spot 3-D CC, 3-D CC rolled lateral, and 3-D LM views. Targeted right breast ultrasound if any persisting abnormality. [facility] will attempt to contact patient to return for supplemental views and ultrasound if indicated. Electronically signed and approved by: Harlan Davis M.D. Radiologist
== END | disposition home or self-care (01) ==
LOC: RADMAMWWP 12:28
PROVIDERS: ATTEND Obstetrics & Gynecology
DX: Z12.31 Encounter for screening mammogram for malignant neoplasm of breast (principal); M81.0 Age-related osteoporosis without current pathological fracture; Z78.0 Asymptomatic menopausal state
CPT/HCPCS: 77063; 77067; 77080

== ENCOUNTER → 2023-01-01 | Outpatient (CLI) | payer MEDICARE ==
--- NOTE | 2023-01-01 09:50 | MM ---
Reason for Exam: Additional evaluation requested from abnormal screening. Last screening mammogram was performed less than 1 month ago. Patient History: Menarche at age 11. Patient has no children. Postmenopausal. Patient used Hormonal Contraceptives for 7 years. Benign Core Biopsy on the right side. 12/31/2000, Benign Stereotactic Core Biopsy on the right side. Risk Values: Lucille 5 year model risk: 2.9%. NCI Lifetime model risk: 5.1%. Tissue Density: Right: The breast tissue is heterogeneously dense. This may lower the sensitivity of mammography. Findings: Analyzed By CAD. Nodular density in the right cc view is less conspicuous on additional spot compression images. Precautionary six-month follow-up is recommended. Overall Assessment: Probably benign, BI-RAD 3 Management: Diagnostic Mammogram of the right breast in 6 months. . Results were given to the patient verbally at the time of exam. Patient should continue monthly self-breast exams. A clinical breast exam by your physician is recommended on an annual basis. This exam should not preclude additional follow-up of suspicious palpable abnormalities. Note on Lucille scores and lifetime risk: 1. A Lucille score greater than 3% is considered moderate risk. If this is the case, consider specialist referral to assess eligibility for a risk reducing agent. 2. If overall lifetime risk for the development of breast cancer is 20% or higher, the patient may qualify for future screening with alternating mammogram and breast MRI. Electronically signed and approved by: Kali Wilson M.D. Radiologis
== END | disposition home or self-care (01) ==
LOC: RADMAMWWP 09:24
PROVIDERS: ATTEND Obstetrics & Gynecology
DX: R92.8 Other abnormal and inconclusive findings on diagnostic imaging of breast (principal); Z78.0 Asymptomatic menopausal state
CPT/HCPCS: 77065; G0279; 77061

== ENCOUNTER → 2023-01-14 | Outpatient (CLI) | payer MEDICARE ==
[2023-01-14 16:08] LABS: % Iron Saturation 31.25 (12.00-45.00); Albumin 4.9 d/dL (3.8-4.9); BUN/Creat Ratio 16.31 Ratio (12.00-20.00); Blood Urea Nitrogen 21.2 mg/dL (9.0-27.0); Calcium 10.2 mg/dL (8.7-10.3); Carbon Dioxide 24.8 mmol/L (21.6-31.8); Chloride 96 mmol/L (96-109); Ferritin 66.9 ng/mL (10.0-291.0); Glucose 97 mg/dL (70-110); Iron 125 UG/DL (50-170); Magnesium 1.9 mg/dL (1.5-2.4); Phosphorus 3.6 mg/dL (2.4-5.1); Potassium 4.5 mmol/L (3.5-5.5); Sodium 135 mmol/L (135-145); Total Iron Binding Capacity 400 UG/DL (228-460); Uric Acid 5.6 mg/dL (2.9-7.7)
[2023-01-14 16:41] LABS: Appearance,Urine Clear (Clear); Bilirubin,Urine Negative (Negative); Blood,Urine Negative (Negative); Color,Urine Yellow (Yellow); Ketones,Urine Negative (Negative); Nitrite,Urine Negative (Negative); PH, Urine 5.5; Specific Gravity,Urine 1.007 (1.001-1.030); Urobilinogen,Urine 0.2 E.U./DL
[2023-01-14 16:43] LABS: Bacteria,Urine None Seen (None Seen)
[2023-01-14 18:06] LABS: Basophils # (A) 0.05 X 10*3/uL (0.00-0.10); Basophils % (A) 0.5 %; Eosinophils # (A) 0.05 X 10*3/uL (0.04-0.35); Eosinophils % (A) 0.5 %; HCT 44.6 % (37.2-46.3); HGB 14.1 d/dL (12.0-15.0); Lymphocytes # (A) 2.03 X 10*3/uL (0.90-5.00); Lymphocytes % (A) 20.4 %; MCH 27.4 pg (27.0-32.0); MCHC 31.6 d/dL (32.0-37.0); MCV 86.8 FL (80.0-97.0); Mean Platelet Volume 9.8 FL (9.5-12.2); Microalbumin Creatinine Ratio <35 mg/g Cr (0-30); Monocytes # (A) 0.68 X 10*3/uL (0.20-1.00); Monocytes % (A) 6.8 %; NRBC Per 100 WBC 0 X 10*3/uL (0.00-0.01); Neutrophils # (A) 7.08 X 10*3/uL (1.80-7.70); Neutrophils % (A) 71.3 %; Platelet Count 314 X 10*3/uL (140-440); RBC 5.14 X 10*6/uL (4.10-5.20); RDW 14.6 % (11.5-14.5); Urine Creatinine 34.1 mg/dL (28.0-217.0); WBC 9.94 X 10*3/uL (4.50-10.00)
== END | disposition home or self-care (01) ==
LOC: LABWHC1 10:53
PROVIDERS: ATTEND Internal Medicine Nephrology
DX: E55.9 Vitamin D deficiency, unspecified (principal); N25.81 Secondary hyperparathyroidism of renal origin; M10.9 Gout, unspecified; N39.0 Urinary tract infection, site not specified; D63.1 Anemia in chronic kidney disease; N18.31 Chronic kidney disease, stage 3a; R80.9 Proteinuria, unspecified
CPT/HCPCS: 36415; 80048; 81001; 82040; 82043; 82306; 82570; 82728; 83540; 83550; 83735; 83970; 84100; 84550; 85025

== ENCOUNTER 2023-02-10 10:17 | Day surgery (SDC) | payer MEDICARE ==
[2023-02-04 12:46] VITALS: BMI 21.9
[~2023-02-10 10:17] MED LIST changes: -LIDOCAINE 1% (10MG/ML) FOR IV START INTRADERMA ONE; -LIDOCAINE 1% INJ 10MG/ML (20 ML MDV) ONE; -PROPOFOL 10 MG/ML 20 ML VIAL IV ONE
[2023-02-10 10:54] VITALS: RESP 16; TEMP 97.2
[2023-02-10] MEDS ORDERED: PROPOFOL 10 MG/ML 20 ML VIAL IV ONE (10:55)
[2023-02-10] MEDS ORDERED: LIDOCAINE 2% INJ 20 MG/ML (2 ML VIAL) ONE (10:55)
--- NOTE | 2023-02-10 10:57 | P.GSHP ---
History of Present Illness H&P Date: 02/10/23 Chief Complaint: Colon cancer screening 77-year-old female here for colonoscopy. Last colonoscopy 3 years ago. Patient with history of colon polyps. Underwent previous right colectomy. No bowel complaints. Past Medical History Past Medical History: Hyperlipidemia, Hypertension, Renal Disease Additional Past Medical History / Comment(s): OSTEOPENIA/OSTEOPOROSIS. DDD. POSSIBLY PREDIABETIC-NEEDS FOLLOW UP History of Any Multi-Drug Resistant Organisms: None Reported Past Surgical History: Appendectomy, Bowel Resection, Tonsillectomy, Tubal Ligation Additional Past Surgical History / Comment(s): SINUS SURGERY, D&C, trigger thumb surgery Past Anesthesia/Blood Transfusion Reactions: No Reported Reaction Past Psychological History: No Psychological Hx Reported Smoking Status: Former smoker Past Alcohol Use History: Occasional Additional Past Alcohol Use History / Comment(s): SMOKED< 1 PPD OFF AND ON FOR PAST 40 YRS, QUIT 11/2018 Past Drug Use History: None Reported - Past Family History Father Family Medical History: Cancer Medications and Allergies Home Medications Medication Instructions Recorded Confirmed Type Lisinopril-Hctz 10-12.5 mg 1 tab PO QAM 09/07/17 02/10/23 History [Zestoretic 10-12.5] Raloxifene HCl 60 mg PO QAM 09/07/17 02/10/23 History Simvastatin 40 mg PO HS 09/07/17 02/10/23 History Montelukast [Singulair] 10 mg PO DAILY 11/22/18 02/10/23 History EPINEPHrine (Auto Inject) [Epipen] 0.3 mg IM ONCE PRN 12/08/19 02/10/23 History Multivitamins, Thera [Multivitamin 1 tab PO DAILY 12/08/19 02/04/23 History (formulary)] Cholecalciferol [Vitamin D3 (25 25 mcg PO DAILY 02/04/23 02/04/23 History Mcg = 1000 Iu)] Cinnamon Bark [Cinnamon] 500 mg PO DAILY 02/04/23 02/04/23 History Allergies Allergy/AdvReac Type Severity Reaction Status Date / Time bee venom protein (honey bee) Allergy Anaphylaxis Verified 02/04/23 12:27 Surgical - Exam Vital Signs Temp Pulse Resp BP Pulse Ox 97.2 F L 82 16 158/72 97 02/10/23 10:42 02/10/23 10:42 02/10/23 10:42 02/10/23 10:42 02/10/23 10:42 Physical exam: General: Well-developed, well-nourished HEENT: Normocephalic, sclerae nonicteric Abdomen: Nontender, nondistended Extremities: No edema Neuro: Alert and oriented Assessment and Plan (1) Colon cancer screening Narrative/Plan: Will proceed with colonoscopy at this time. Current Visit: No Status: Acute Code(s): Z12.11 - SNOMED Code(s): 618105585
--- NOTE | 2023-02-10 11:15 | P.PCN ---
Date of Procedure: 02/10/23 Procedure(s) Performed: PREOPERATIVE DIAGNOSIS: Colon cancer screening with history of polyps POSTOPERATIVE DIAGNOSIS: Diverticulosis PROCEDURE: Colonoscopy ANESTHESIA: MAC SURGEON: Benjamin Schrader M.D. SPECIMENS: None ENDOSCOPIC PROCEDURE: The patient was placed on the endoscopy table in the left decubitus position. The Olympus colonoscope was inserted into the anus and passed under direct visualization to the ileocolonic anastomosis. From that point the scope was slowly withdrawn inspecting all surfaces carefully. There were no neoplastic inflammatory or polypoid lesions throughout the transverse, descending, sigmoid and rectum. There was moderate left-sided diverticulosis noted. Digital rectal examination was normal. The patient was taken to the recovery room in stable condition per anesthesia guidelines. RECOMMENDATIONS: Resume diet. Repeat colonoscopy in 3-5 years.
[2023-02-10 11:32] VITALS: BP 114/68; PULSE 65
== END 2023-02-10 11:54 | disposition home or self-care (01) ==
LOC: ORWHC2ENDO 10:17
PROVIDERS: ATTEND Surgery
DX: Z12.11 Encounter for screening for malignant neoplasm of colon (principal); K57.30 Diverticulosis of large intestine without perforation or abscess without bleeding; E78.5 Hyperlipidemia, unspecified; I10 Essential (primary) hypertension; M81.0 Age-related osteoporosis without current pathological fracture; F10.90 Alcohol use, unspecified, uncomplicated; Z87.891 Personal history of nicotine dependence; Z90.49 Acquired absence of other specified parts of digestive tract; Z91.030 Bee allergy status; Z86.010 Personal history of colon polyps; Z79.899 Other long term (current) drug therapy
CPT/HCPCS: J2704; J2001; G0121

== ENCOUNTER → 2023-03-10 | Outpatient (CLI) | payer MEDICARE ==
[2023-03-10 11:26] LABS: ALT 16 U/L (8-44); AST 21 U/L (13-35); Albumin 4.7 d/dL (3.8-4.9); Albumin/Globulin Ratio 1.88 Ratio (1.60-3.17); Alkaline Phosphatase 51 U/L (41-126); BUN/Creat Ratio 16.53 Ratio (12.00-20.00); Blood Urea Nitrogen 24.8 mg/dL (9.0-27.0); Carbon Dioxide 25.8 mmol/L (21.6-31.8); Chloride 102 mmol/L (96-109); Chol/HDL Ratio 2.73 Ratio; Globulin 2.5 d/dL (1.6-3.3); Glucose 97 mg/dL (70-110); LDL Cholesterol,Calculated 83.4 mg/dL (0.0-131.0); Potassium 4.2 mmol/L (3.5-5.5); Sodium 139 mmol/L (135-145); T4, Free (Free Thyroxine) 1.67 ng/dL (0.80-1.80); Total Bilirubin 0.5 mg/dL (0.3-1.2); Total Protein 7.2 d/dL (6.2-8.2)
== END | disposition home or self-care (01) ==
LOC: LABWHC1 07:16
PROVIDERS: ATTEND Family Medicine
DX: Z00.00 Encounter for general adult medical examination without abnormal findings (principal); I12.9 Hypertensive chronic kidney disease with stage 1 through stage 4 chronic kidney disease, or unspecified chronic kidney disease; N18.9 Chronic kidney disease, unspecified; E55.9 Vitamin D deficiency, unspecified; J44.9 Chronic obstructive pulmonary disease, unspecified
CPT/HCPCS: 36415; 80053; 80061; 82306; 83036; 84439; 84443; 85025

== ENCOUNTER → 2023-03-20 | Outpatient (CLI) | payer MEDICARE ==
[2023-03-20 16:09] LABS: Basophils # (A) 0.08 X 10*3/uL (0.00-0.10); Basophils % (A) 0.9 %; Eosinophils # (A) 0.15 X 10*3/uL (0.04-0.35); Eosinophils % (A) 1.8 %; HCT 44.8 % (37.2-46.3); HGB 13.9 g/dL (12.0-15.0); Lymphocytes # (A) 2.38 X 10*3/uL (0.90-5.00); MCH 26.5 pg (27.0-32.0); MCV 85.5 FL (80.0-97.0); Mean Platelet Volume 9.4 FL (9.5-12.2); Monocytes # (A) 0.86 X 10*3/uL (0.20-1.00); Monocytes % (A) 10.1 %; NRBC Per 100 WBC 0 X 10*3/uL (0.00-0.01); Neutrophils # (A) 4.99 X 10*3/uL (1.80-7.70); Neutrophils % (A) 58.8 %; Platelet Count 306 X 10*3/uL (140-440); RBC 5.24 X 10*6/uL (4.10-5.20); RDW 14.3 % (11.5-14.5); WBC 8.49 X 10*3/uL (4.50-10.00)
== END | disposition home or self-care (01) ==
LOC: LABWHC1 08:37
PROVIDERS: ATTEND Family Medicine
DX: Z00.00 Encounter for general adult medical examination without abnormal findings (principal); I12.9 Hypertensive chronic kidney disease with stage 1 through stage 4 chronic kidney disease, or unspecified chronic kidney disease; N18.9 Chronic kidney disease, unspecified; J44.9 Chronic obstructive pulmonary disease, unspecified; E55.9 Vitamin D deficiency, unspecified
CPT/HCPCS: 36415; 85025

== ENCOUNTER → 2023-06-17 | Outpatient (CLI) | payer MEDICARE ==
[2023-06-17 15:48] LABS: Basophils # (A) 0.07 X 10*3/uL (0.00-0.10); Basophils % (A) 0.8 %; Eosinophils # (A) 0.09 X 10*3/uL (0.04-0.35); HCT 41.7 % (37.2-46.3); HGB 13.2 g/dL (12.0-15.0); Lymphocytes # (A) 1.46 X 10*3/uL (0.90-5.00); MCH 26.8 pg (27.0-32.0); MCHC 31.7 g/dL (32.0-37.0); MCV 84.6 FL (80.0-97.0); Mean Platelet Volume 9.4 FL (9.5-12.2); Monocytes # (A) 0.94 X 10*3/uL (0.20-1.00); Monocytes % (A) 10.3 %; NRBC Per 100 WBC 0 X 10*3/uL (0.00-0.01); Neutrophils # (A) 6.53 X 10*3/uL (1.80-7.70); Neutrophils % (A) 71.2 %; Platelet Count 316 X 10*3/uL (140-440); RBC 4.93 X 10*6/uL (4.10-5.20); WBC 9.15 X 10*3/uL (4.50-10.00)
[2023-06-17 16:30] LABS: % Iron Saturation 22.85 (12.00-45.00); Albumin 4.3 g/dL (3.8-4.9); BUN/Creat Ratio 15.86 Ratio (12.00-20.00); Blood Urea Nitrogen 22.2 mg/dL (9.0-27.0); Calcium 9.6 mg/dL (8.7-10.3); Carbon Dioxide 24.9 mmol/L (21.6-31.8); Chloride 94 mmol/L (96-109); Glucose 107 mg/dL (70-110); Iron 85 UG/DL (50-170); Magnesium 1.9 mg/dL (1.5-2.4); Phosphorus 3.1 mg/dL (2.4-5.1); Potassium 4.6 mmol/L (3.5-5.5); Sodium 132 mmol/L (135-145); Total Iron Binding Capacity 372 UG/DL (228-460); Uric Acid 5.2 mg/dL (2.9-7.7)
[2023-06-17 16:39] LABS: Appearance,Urine Clear (Clear); Bilirubin,Urine Negative (Negative); Blood,Urine Negative (Negative); Color,Urine Yellow (Yellow); Ketones,Urine Negative (Negative); Nitrite,Urine Negative (Negative); Specific Gravity,Urine 1.008 (1.001-1.030); Urobilinogen,Urine 0.2 E.U./DL
[2023-06-17 16:55] LABS: Bacteria,Urine None Seen (None Seen)
[2023-06-17 20:54] LABS: Microalbumin Creatinine Ratio <34 mg/g Cr (0-30); Urine Creatinine 35.5 mg/dL (28.0-217.0)
== END | disposition home or self-care (01) ==
LOC: LABWHC1 10:37
PROVIDERS: ATTEND Internal Medicine Nephrology
DX: E55.9 Vitamin D deficiency, unspecified (principal); N25.81 Secondary hyperparathyroidism of renal origin; M10.9 Gout, unspecified; N39.0 Urinary tract infection, site not specified; N18.31 Chronic kidney disease, stage 3a; D63.1 Anemia in chronic kidney disease; R80.9 Proteinuria, unspecified
CPT/HCPCS: 36415; 80048; 81001; 82040; 82043; 82306; 82570; 82728; 83540; 83550; 83735; 83970; 84100; 84550; 85025

== ENCOUNTER → 2023-07-06 | Outpatient (CLI) | payer MEDICARE ==
--- NOTE | 2023-07-06 11:36 | MM ---
Reason for Exam: Follow-up at short interval from prior study. Last screening mammogram was performed 6 month(s) ago. Patient History: Menarche at age 11. Patient has no children. Postmenopausal. Patient used Hormonal Contraceptives for 7 years. Benign Core Biopsy on the right side. 12/31/2000, Benign Stereotactic Core Biopsy on the right side. Risk Values: Lucille 5 year model risk: 2.8%. NCI Lifetime model risk: 4.7%. Prior Study Comparison: 12/25/2021 Bilateral MG 3D screening mammo w/cad, [facility]. 12/26/2022 Bilateral MG 3D screening mammo w/cad, [facility]. 01/01/2023 Right MG 3D work up w/cad RT, [facility]. Tissue Density: Right: The breast tissue is heterogeneously dense. This may lower the sensitivity of mammography. Findings: Analyzed By CAD. There is a focal asymmetry within the inner mid left breast. Under tomography no suspicious underlying spiculated or lobular masses evident. Scattered benign-appearing calcifications are present. No significant interval change is evident. Core marker is within normal right breast. Overall Assessment: Probably benign, BI-RAD 3 Management: Diagnostic Mammogram of both breasts in 6 months. A negative mammogram report should not preclude additional follow up of suspicious palpable abnormalities. Patient should continue monthly self breast exam. A clinical breast exam by your physician is recommended on an annual basis and results should be correlated with mammographic findings. Electronically signed and approved by: Sudarshan Day D.O. Radiologis
== END | disposition home or self-care (01) ==
LOC: RADMAMWWP 10:42
PROVIDERS: ATTEND Obstetrics & Gynecology
DX: R92.331 Mammographic heterogeneous density, right breast (principal); Z78.0 Asymptomatic menopausal state
CPT/HCPCS: 77065; G0279; 77061

== ENCOUNTER → 2023-08-11 | Outpatient (CLI) | payer MEDICARE | END | disposition home or self-care (01) | LOC: LABWHC1 09:42 | PROVIDERS: ATTEND Internal Medicine Nephrology | DX: N18.31 Chronic kidney disease, stage 3a (principal) | CPT/HCPCS: 36415; 82310 ==

== ENCOUNTER → 2024-01-14 | Outpatient (CLI) | payer MEDICARE ==
--- NOTE | 2024-01-14 09:41 | MM ---
Reason for Exam: Follow-up at short interval from prior study. Last mammogram was performed 1 year(s) and 1 month(s) ago. Patient History: Menarche at age 11. Patient has no children. Postmenopausal. Patient used Hormonal Contraceptives for 7 years. Benign Core Biopsy on the right side. 12/31/2000, Benign Stereotactic Core Biopsy on the right side. Risk Values: Lucille 5 year model risk: 2.8%. NCI Lifetime model risk: 4.7%. Prior Study Comparison: 12/24/2020 Bilateral Screening Mammogram, [facility]. 12/25/2021 Bilateral MG 3D screening mammo w/cad, [facility]. 12/26/2022 Bilateral MG 3D screening mammo w/cad, [facility]. 01/01/2023 Right MG 3D work up w/cad RT, [facility]. 07/06/2023 Right MG 3D diag mammo w/cad RT, [facility]. Tissue Density: The breasts are heterogeneously dense, which may obscure small masses. Findings: Analyzed By CAD. Benign bilateral oil cyst calcifications. Asymmetric density central posterior right cc view remains unchanged. Asymmetric density medial left CC view middle depth does not persist on spot compression compatible with superimposition shadow. Other areas of asymmetric density are unchanged. No significant change from prior exams. Overall Assessment: Benign, BI-RAD 2 Management: Screening Mammogram of both breasts in 1 year. Results were given to the patient verbally at the time of exam. Patient should continue monthly self-breast exams. A clinical breast exam by your physician is recommended on an annual basis. This exam should not preclude additional follow-up of suspicious palpable abnormalities. Note on Lucille scores and lifetime risk: 1. A Lucille score greater than 3% is considered moderate risk. If this is the case, consider specialist referral to assess eligibility for a risk reducing agent. 2. If overall lifetime risk for the development of breast cancer is 20% or higher, the patient may qualify for future screening with alternating mammogram and breast MRI. Electronically signed and approved by: Harlan Davis M.D. Radiologist
== END | disposition home or self-care (01) ==
LOC: RADMAMWWP 08:58
PROVIDERS: ATTEND Family Medicine
DX: R92.8 Other abnormal and inconclusive findings on diagnostic imaging of breast
CPT/HCPCS: 77062; 77066

== ENCOUNTER → 2024-04-22 | Outpatient (CLI) | payer MEDICARE ==
[2024-04-22 15:21] LABS: Appearance,Urine Clear (Clear); Bilirubin,Urine Negative (Negative); Blood,Urine Negative (Negative); Color,Urine Yellow (Yellow); Ketones,Urine Negative (Negative); Nitrite,Urine Negative (Negative); Specific Gravity,Urine 1.005 (1.001-1.030); Urobilinogen,Urine 0.2 E.U./DL
[2024-04-22 15:30] LABS: % Iron Saturation 28.07 (12.00-45.00); BUN/Creat Ratio 19.77 Ratio (12.00-20.00); Blood Urea Nitrogen 25.7 mg/dL (9.0-27.0); Calcium 9.6 mg/dL (8.7-10.3); Carbon Dioxide 23.5 mmol/L (21.6-31.8); Chloride 101 mmol/L (96-109); Glucose 112 mg/dL (70-110); Iron 105 UG/DL (50-170); Magnesium 1.8 mg/dL (1.5-2.4); Phosphorus 3.5 mg/dL (2.4-5.1); Potassium 4.5 mmol/L (3.5-5.5); Sodium 139 mmol/L (135-145); Total Iron Binding Capacity 374 UG/DL (228-460); Uric Acid 6.6 mg/dL (2.9-7.7)
[2024-04-22 15:31] LABS: Albumin 4.6 g/dL (3.8-4.9); Ferritin 89.3 ng/mL (10.0-291.0)
[2024-04-22 17:11] LABS: HCT 44.4 % (37.2-46.3); HGB 13.6 g/dL (12.0-15.0); MCHC 30.6 g/dL (32.0-37.0); MCV 88.3 FL (80.0-97.0); Mean Platelet Volume 9.9 FL (9.5-12.2); NRBC Per 100 WBC 0 X 10*3/uL (0.00-0.01); Platelet Count 312 X 10*3/uL (140-440); RBC 5.03 X 10*6/uL (4.10-5.20); RDW 15.2 % (11.5-14.5)
[2024-04-22 17:12] LABS: Basophils # (A) 0.09 X 10*3/uL (0.00-0.10); Basophils % (A) 0.9 %; Eosinophils # (A) 0.15 X 10*3/uL (0.04-0.35); Eosinophils % (A) 1.5 %; Lymphocytes # (A) 1.91 X 10*3/uL (0.90-5.00); Lymphocytes % (A) 18.9 %; Monocytes # (A) 0.78 X 10*3/uL (0.20-1.00); Monocytes % (A) 7.7 %; Neutrophils # (A) 7.11 X 10*3/uL (1.80-7.70); Neutrophils % (A) 70.4 %
[2024-04-22 19:14] LABS: Microalbumin Creatinine Ratio <77 mg/g Cr (0-30); Urine Creatinine 15.6 mg/dL (28.0-217.0)
== END | disposition home or self-care (01) ==
LOC: LABWHC1 10:20
PROVIDERS: ATTEND Internal Medicine Nephrology
DX: E55.9 Vitamin D deficiency, unspecified (principal); D64.9 Anemia, unspecified; N18.31 Chronic kidney disease, stage 3a; N25.81 Secondary hyperparathyroidism of renal origin; M10.9 Gout, unspecified; N39.0 Urinary tract infection, site not specified; R80.9 Proteinuria, unspecified
CPT/HCPCS: 36415; 80048; 81003; 82040; 82043; 82306; 82570; 82728; 83540; 83550; 83735; 83970; 84100; 84550; 85025

== ENCOUNTER → 2024-05-12 | Outpatient (CLI) | payer MEDICARE ==
--- NOTE | 2024-05-12 15:48 | US ---
EXAMINATION TYPE: US kidneys/renal and bladder DATE OF EXAM: 05/12/2024 COMPARISON: Renal ultrasound 10/31/2021 CLINICAL INDICATION: Female, 78 years old with history of N18.31 CKD 3A; ckd TECHNIQUE: Grayscale imaging of the bilateral kidneys and urinary bladder: FINDINGS: EXAM MEASUREMENTS: Right Kidney: 10.6 x 4.3 x 4.3 cm Left Kidney: 7.1 x 4.2 x 3.1 cm Post Void Residual Volume: 0 mL Right Kidney: No hydronephrosis or masses seen Left Kidney: Atrophic thinning cortex. Bladder: anechoic Bilateral Jets seen: no Normal Post Void Residual: yes There is no evidence for hydronephrosis at this point in time. No nephrolithiasis is seen. Corticome dullary differentiation is maintained. Cortical thinning identified involving the left kidney. No ma sses are identified. The urinary bladder is underdistended and anechoic. IMPRESSION: 1. No hydronephrosis or nephrolithiasis. 2. Atrophic left kidney redemonstrated. [facility], , 05/12/2024 3:45 PM
== END | disposition home or self-care (01) ==
LOC: RADUSWWP 15:18
PROVIDERS: ATTEND Internal Medicine Nephrology
DX: N18.31 Chronic kidney disease, stage 3a (principal); N26.1 Atrophy of kidney (terminal)
CPT/HCPCS: 76770

== ENCOUNTER → 2024-09-01 | Outpatient (CLI) | payer MEDICARE ==
[2024-09-01 19:27] LABS: Microalbumin Creatinine Ratio <92 mg/g Cr (0-30)
[2024-09-01 19:38] LABS: Basophils # (A) 0.06 X 10*3/uL (0.00-0.10); Basophils % (A) 0.7 %; Eosinophils % (A) 1.2 %; HCT 44.6 % (37.2-46.3); Lymphocytes # (A) 2.06 X 10*3/uL (0.90-5.00); Lymphocytes % (A) 24.6 %; MCH 27.3 pg (27.0-32.0); MCHC 31.4 g/dL (32.0-37.0); MCV 86.9 FL (80.0-97.0); Mean Platelet Volume 9.4 FL (9.5-12.2); Monocytes # (A) 0.64 X 10*3/uL (0.20-1.00); Monocytes % (A) 7.6 %; NRBC Per 100 WBC 0 X 10*3/uL (0.00-0.01); Neutrophils # (A) 5.48 X 10*3/uL (1.80-7.70); Neutrophils % (A) 65.3 %; Platelet Count 331 X 10*3/uL (140-440); RBC 5.13 X 10*6/uL (4.10-5.20); RDW 14.4 % (11.5-14.5); WBC 8.39 X 10*3/uL (4.50-10.00)
[2024-09-01 20:18] LABS: % Iron Saturation 34.46 (12.00-45.00); Albumin 4.6 g/dL (3.8-4.9); Blood Urea Nitrogen 27.3 mg/dL (9.0-27.0); Calcium 9.7 mg/dL (8.7-10.3); Carbon Dioxide 22.3 mmol/L (21.6-31.8); Chloride 99 mmol/L (96-109); Glucose 115 mg/dL (70-110); Iron 133 UG/DL (50-170); Potassium 4.6 mmol/L (3.5-5.5); Sodium 137 mmol/L (135-145); Total Iron Binding Capacity 386 UG/DL (228-460)
[2024-09-01 21:42] LABS: Appearance,Urine Clear (Clear); Bilirubin,Urine Negative (Negative); Blood,Urine Negative (Negative); Color,Urine Yellow (Yellow); Ketones,Urine Negative (Negative); Nitrite,Urine Negative (Negative); PH, Urine 5.5; Specific Gravity,Urine 1.004 (1.001-1.030); Urobilinogen,Urine 0.2 E.U./DL
== END | disposition home or self-care (01) ==
LOC: LABWHC1 13:16
PROVIDERS: ATTEND Nurse Practitioner Family
DX: N18.31 Chronic kidney disease, stage 3a (principal); D63.1 Anemia in chronic kidney disease; N39.0 Urinary tract infection, site not specified; R80.9 Proteinuria, unspecified
CPT/HCPCS: 36415; 80048; 81003; 82040; 82043; 82570; 82728; 83540; 83550; 85025

== ENCOUNTER → 2024-09-19 | Outpatient (CLI) | payer MEDICARE ==
[2024-09-19 10:41] LABS: Basophils # (A) 0.07 X 10*3/uL (0.00-0.10); Basophils % (A) 1.1 %; Eosinophils # (A) 0.21 X 10*3/uL (0.04-0.35); Eosinophils % (A) 3.3 %; HCT 43.9 % (37.2-46.3); HGB 13.5 g/dL (12.0-15.0); Lymphocytes # (A) 2.06 X 10*3/uL (0.90-5.00); Lymphocytes % (A) 32.4 %; MCH 26.7 pg (27.0-32.0); MCHC 30.8 g/dL (32.0-37.0); MCV 86.9 FL (80.0-97.0); Mean Platelet Volume 9.9 FL (9.5-12.2); Monocytes # (A) 0.68 X 10*3/uL (0.20-1.00); Monocytes % (A) 10.7 %; NRBC Per 100 WBC 0 X 10*3/uL (0.00-0.01); Neutrophils # (A) 3.31 X 10*3/uL (1.80-7.70); Platelet Count 299 X 10*3/uL (140-440); RBC 5.05 X 10*6/uL (4.10-5.20); RDW 14.6 % (11.5-14.5); WBC 6.36 X 10*3/uL (4.50-10.00)
[2024-09-19 10:43] LABS: ALT 13 U/L (8-44); AST 21 U/L (13-35); Albumin 4.4 g/dL (3.8-4.9); Albumin/Globulin Ratio 1.83 Ratio (1.60-3.17); Alkaline Phosphatase 57 U/L (41-126); BUN/Creat Ratio 25.85 Ratio (12.00-20.00); Blood Urea Nitrogen 33.6 mg/dL (9.0-27.0); Calcium 9.6 mg/dL (8.7-10.3); Carbon Dioxide 26.3 mmol/L (21.6-31.8); Chloride 104 mmol/L (96-109); Chol/HDL Ratio 2.84 Ratio; Globulin 2.4 g/dL (1.6-3.3); Glucose 103 mg/dL (70-110); LDL Cholesterol,Calculated 91.7 mg/dL (0.0-131.0); Potassium 4.6 mmol/L (3.5-5.5); Sodium 140 mmol/L (135-145); T4, Free (Free Thyroxine) 1.46 ng/dL (0.80-1.80); Total Bilirubin 0.4 mg/dL (0.3-1.2); Total Protein 6.8 g/dL (6.2-8.2)
== END | disposition home or self-care (01) ==
LOC: LABWHC1 07:08
PROVIDERS: ATTEND Family Medicine
DX: I12.9 Hypertensive chronic kidney disease with stage 1 through stage 4 chronic kidney disease, or unspecified chronic kidney disease (principal); E11.22 Type 2 diabetes mellitus with diabetic chronic kidney disease; N18.9 Chronic kidney disease, unspecified; J44.9 Chronic obstructive pulmonary disease, unspecified; E78.5 Hyperlipidemia, unspecified
CPT/HCPCS: 36415; 80053; 80061; 83036; 84439; 84443; 85025